=== PATIENT | female | born 1940 | race Caucasian/White ===

== ENCOUNTER 2017-10-10 09:01 | Emergency (ER) | payer MEDICARE, OTHER ==
[2017-10-10] MEDS ORDERED: DEXAMETHASONE SOD PHOS INJ 10 MG/1 ML VIAL IM ONE (09:56)
[2017-10-10] MEDS ORDERED: IPRATROPIUM/ALBUTEROL 0.5-2.5 MG/3 ML AMPUL NEB ONE (09:56)
--- NOTE | 2017-10-10 10:18 | ER Document Report ---
ED General - General Chief Complaint: Chest Congestion Stated Complaint: CHEST PAIN Time Seen by Provider: 10/10/17 09:51 Mode of Arrival: Wheelchair Information source: Patient, Relative Notes: 77-year-old female presents with family with concerns of a cough of a few day duration productive white. Patient has a history of COPD, she notes that she feels fine at this time but in the past that has led to pneumonia and she wanted to be seen prior to this occurring. Patient denies any significant shortness of breath denies any nausea vomiting or diarrhea Family does know patient is to have a pacemaker for some type of arrhythmia TRAVEL OUTSIDE OF THE [place] IN LAST 30 DAYS: No - HPI Onset: Yesterday Onset/Duration: Sudden Quality of pain: No pain Severity: Mild Pain Level: Denies Associated symptoms: Productive cough, Shortness of breath Exacerbated by: Denies Relieved by: Denies Similar symptoms previously: No Recently seen / treated by doctor: No - Related Data Allergies/Adverse Reactions: amoxicillin Allergy (Verified 10/10/17 09:06) clindamycin Allergy (Verified 10/10/17 09:06) doxycycline Allergy (Verified 10/10/17 09:06) Sulfa (Sulfonamide Antibiotics) Allergy (Verified 10/10/17 09:06) cortisone Adverse Reaction (Verified 10/10/17 09:11) latex Adverse Reaction (Verified 10/10/17 09:11) silicone Adverse Reaction (Verified 10/10/17 09:11) sitagliptin [From Januvia] Adverse Reaction (Verified 10/10/17 09:11) Past Medical History - Social History Smoking Status: Former Smoker Cigarette use (# per day): No Chew tobacco use (# tins/day): No Smoking Education Provided: No Frequency of alcohol use: Rare Drug Abuse: None Family History: Reviewed & Not Pertinent Patient has suicidal ideation: No Patient has homicidal ideation: No - Past Medical History Cardiac Medical History: Reports: Hx Hypertension Pulmonary Medical History: Reports: Hx COPD Renal/ Medical History: Denies: Hx Peritoneal Dialysis Musculoskeltal Medical History: Reports Hx Arthritis Past Surgical History: Reports: Hx Cardiac Surgery - 3 stents, Hx Cholecystectomy, Hx Orthopedic Surgery - L knee, bilateral wrists, Hx Tonsillectomy Review of Systems - Review of Systems Notes: REVIEW OF SYSTEMS: CONSTITUTIONAL : Denies fever, chills, or sweats. Denies recent illness. EENT: Denies eye, ear, throat, or mouth pain or symptoms. Denies nasal or sinus congestion or discharge. Denies throat, tongue, or mouth swelling or difficulty swallowing. CARDIOVASCULAR: Denies chest pain. Denies palpitations or racing or irregular heart beat. Denies ankle edema. RESPIRATORY: Admits to cough congestion GASTROINTESTINAL: Denies abdominal pain or distention. Denies nausea, vomiting , or diarrhea. Denies blood in vomitus, stools, or per rectum. Denies black, tarry stools. Denies constipation. GENITOURINARY: Denies difficulty urinating, painful urination, burning, frequency, blood in urine, or discharge. FEMALE GENITOURINARY: Denies vaginal bleeding, heavy or abnormal periods, irregular periods. Denies vaginal discharge or odor. MUSCULOSKELETAL: Denies back or neck pain or stiffness. Denies joint pain or swelling. SKIN: Denies rash, lesions or sores. HEMATOLOGIC : Denies easy bruising or bleeding. LYMPHATIC: Denies swollen, enlarged glands. NEUROLOGICAL: Denies confusion or altered mental status. Denies passing out or loss of consciousness. Denies dizziness or lightheadedness. Denies headache. Denies weakness or paralysis or loss of use of either side. Denies problems with gait or speech. Denies sensory loss, numbness, or tingling. Denies seizures. PSYCHIATRIC: Denies anxiety or stress. Denies depression, suicidal ideation, or homicidal ideation. ALL OTHER SYSTEMS REVIEWED AND NEGATIVE. PHYSICAL EXAMINATION: GENERAL: Well-appearing, well-nourished and in no acute distress. HEAD: Atraumatic, normocephalic. EYES: Pupils equal round and reactive to light, extraocular movements intact, conjunctiva are normal. ENT: Nares patent, oropharynx clear without exudates. Moist mucous membranes. NECK: Normal range of motion, supple without lymphadenopathy LUNGS: Breath sounds clear to auscultation bilaterally and equal. No wheezes rales or rhonchi. HEART: Regular rate and rhythm without murmurs ABDOMEN: Soft, nontender, nondistended abdomen. No guarding, no rebound. No masses appreciated. Female : deferred Musculoskeletal: Normal range of motion, no pitting or edema. No cyanosis. NEUROLOGICAL: Cranial nerves grossly intact. Normal speech, normal gait. Normal sensory, motor exams PSYCH: Normal mood, normal affect. SKIN: Warm, Dry, normal turgor, no rashes or lesions noted. Dictation was performed using [employer] voice recognition software Physical Exam - Vital signs Vitals: Temp Pulse Resp BP Pulse Ox 98.5 F 75 16 124/55 L 98 10/10/17 09:14 10/10/17 09:14 10/10/17 09:14 10/10/17 09:14 10/10/17 09:14 Course - Re-evaluation Re-evalutation: 10/10/17 11:15 Patient's examination is quite benign, she looks well is in no distress, chest x -ray noted no pneumonia, an EKG was performed and no arrhythmia was noted, there is an incomplete left bundle branch block. Given that patient feels fine after breathing treatment I believe steroids is appropriate. She has no chest pain no concerns for a cardiac event After performing a Medical Screening Examination, I estimate there is LOW risk for ACUTE CORONARY SYNDROME, PULMONARY EMBOLI, RESPIRATORY FAILURE, SEPSIS OR MENINGITIS, thus I consider the discharge disposition reasonable. I have reevaluated this patient multiple times and no significant life threatening changes are noted. The patient and I have discussed the diagnosis and risks, and we agree with discharging home with close follow-up. We also discussed returning to the Emergency Department immediately if new or worsening symptoms occur. We have discussed the symptoms which are most concerning (e.g., changing or worsening pain, trouble swallowing or breathing, neck stiffness, fever) that necessitate immediate return. - Vital Signs Vital signs: Temp Pulse Resp BP Pulse Ox 98.5 F 75 16 124/55 L 98 10/10/17 09:14 10/10/17 09:14 10/10/17 09:14 10/10/17 09:14 10/10/17 09:14 - Diagnostic Test Radiology reviewed: Image reviewed, Reports reviewed - EKG Interpretation by Me EKG shows normal: Sinus rhythm, [place], Intervals, QRS Complexes Alvord/QRS: LBBB Discharge - Discharge Clinical Impression: COPD exacerbation, Left bundle branch block Condition: Stable Disposition: HOME, SELF-CARE Instructions: Chronic Obstructive Lung Disease ([facility]) Additional Instructions: Follow up with your physician tomorrow for further care or return to the ED IMMEDIATELY if symptoms worsen or new concerns occur. If you cannot afford to follow up with your primary care physician a list of low cost clinics have been provided at the end of your discharge papers as well. Prescriptions: Prednisone [Deltasone 20 mg Tablet] 3 tab PO DAILY 5 Days tablet
--- NOTE | 2017-10-10 10:56 | RADIOLOGY REPORT (SQ) ---
EXAM DESCRIPTION: CHEST PA/LAT COMPLETED DATE/TIME: 10/10/2017 10:45 am REASON FOR STUDY: copd COMPARISON: None. EXAM PARAMETERS: NUMBER OF VIEWS: two views TECHNIQUE: Digital Frontal and Lateral radiographic views of the chest acquired. RADIATION DOSE: NA LIMITATIONS: none FINDINGS: LUNGS AND PLEURA: No opacities, masses or pneumothorax. No pleural effusion. MEDIASTINUM AND HILAR STRUCTURES: No masses or contour abnormalities. HEART AND VASCULAR STRUCTURES: Heart normal size. No evidence for failure. BONES: No acute findings. HARDWARE: None in the chest. OTHER: No other significant finding. IMPRESSION: NO SIGNIFICANT RADIOGRAPHIC FINDING IN THE CHEST. TECHNICAL DOCUMENTATION: JOB ID: [id number] [employer]- All Rights Reserved
[2017-10-10 11:17] VITALS: BP 120/50
--- NOTE | 2017-10-10 20:48 | EKG REPORT ---
SEVERITY:- ABNORMAL ECG - SINUS RHYTHM INCOMPLETE LEFT BUNDLE BRANCH BLOCK ANTERIOR Q WAVES, POSSIBLY DUE TO ILBBB : Confirmed by: Heladio Lombardo MD 10-Oct-2017 20:48:04
== END 2017-10-10 11:08 | disposition home or self-care (01) ==
LOC: ER 09:01
DX: I44.7 Left bundle-branch block, unspecified (principal); J44.1 Chronic obstructive pulmonary disease with (acute) exacerbation; R09.89 Other specified symptoms and signs involving the circulatory and respiratory systems; R07.9 Chest pain, unspecified; Z87.891 Personal history of nicotine dependence
CPT/HCPCS: 93005; 94640; 99284; 96372; 87070; 87880; 87804; 71020; 93010; J1100; A9270; J7620

== ENCOUNTER → 2018-01-19 | Outpatient (CLI) | payer MEDICARE, OTHER ==
--- NOTE | 2018-01-19 17:21 | Pulmonary Function Test ---
Pulmonary Function Test Date of Procedure:: 01/19/18 INDICATION:: Dyspnea Referring Provider: Dr. Montero Fitness Worker: Shannan Kauffman [employer] MACHINE PROGRAMMER - Report Spirometry: FVC 2.36 L 92% FEV1 1.78 L 96% FEV1/FVC % 75 predicted 81 FEF 25-75% 1.38 91% Lung Volume: Total lung capacity 3.74 L 79% Vital capacity 2.36 L 92% Inspiratory capacity 1.88 FRC N 2 1.86 L 72% ERV 0.28 RV 1.36 L 69% RV/TLC % 37 predicted 43 Diffusion Capactity: DLCO 13.7 70% DLCO/VA 3.55 104% Impression: No evidence to substantiate obstructive ventilatory defect. Borderline restrictive ventilatory defect. No hyperinflation or air trapping. Mild decrease in diffusion capacity.
== END ==
LOC: RT 12:22
PROVIDERS: ATTEND Internal Medicine Pulmonary Disease
DX: J44.9 Chronic obstructive pulmonary disease, unspecified (principal)
CPT/HCPCS: 94010; 94727; 94729

== ENCOUNTER 2018-05-08 17:19 | Emergency (ER) | payer MEDICARE, OTHER ==
--- NOTE | 2018-05-08 17:55 | ER Document Report ---
ED Medical Screen (RME) - General Chief Complaint: General Weakness Stated Complaint: WEAKNESS Time Seen by Provider: 05/08/18 17:46 TRAVEL OUTSIDE OF THE [place] IN LAST 30 DAYS: No - HPI Notes: 05/08/18 17:55 Nonspecific weakness greater today ongoing for greater than a week - Related Data Allergies/Adverse Reactions: amoxicillin Allergy (Verified 10/10/17 09:06) clindamycin Allergy (Verified 10/10/17 09:06) doxycycline Allergy (Verified 10/10/17 09:06) Sulfa (Sulfonamide Antibiotics) Allergy (Verified 10/10/17 09:06) cortisone Adverse Reaction (Verified 10/10/17 09:11) latex Adverse Reaction (Verified 10/10/17 09:11) silicone Adverse Reaction (Verified 10/10/17 09:11) sitagliptin [From Januvia] Adverse Reaction (Verified 10/10/17 09:11) Past Medical History - Social History Chew tobacco use (# tins/day): No Frequency of alcohol use: None - Past Medical History Cardiac Medical History: Reports: Hx Hypertension Pulmonary Medical History: Reports: Hx COPD Renal/ Medical History: Denies: Hx Peritoneal Dialysis Musculoskeltal Medical History: Reports Hx Arthritis Past Surgical History: Reports: Hx Cardiac Surgery - 3 stents, Hx Cholecystectomy, Hx Orthopedic Surgery - L knee, bilateral wrists, Hx Tonsillectomy Review of Systems - Review of Systems Constitutional: Weakness Physical Exam - Vital signs Vitals: Temp Pulse Resp BP Pulse Ox 98.7 F 77 20 131/52 H 96 05/08/18 17:28 05/08/18 17:28 05/08/18 17:28 05/08/18 17:28 05/08/18 17:28 - Respiratory Respiratory status: No respiratory distress Chest status: Nontender Breath sounds: Normal Chest palpation: Normal Course - Vital Signs Vital signs: Temp Pulse Resp BP Pulse Ox 98.7 F 77 20 131/52 H 96 05/08/18 17:28 05/08/18 17:28 05/08/18 17:28 05/08/18 17:28 05/08/18 17:28 Doctor's Discharge - Discharge Referrals: CLOVIS KAPLAN MD [Primary Care Provider] - Follow up as needed
[2018-05-08 18:36] LABS: ABSOLUTE BASOPHILS # (AUTO) 0.1 10^3/uL (0.0-0.2); ABSOLUTE EOSINOPHILS # (AUTO) 0.1 10^3/uL (0.0-0.6); ABSOLUTE LYMPHOCYTES (AUTO) 1.6 10^3/uL (0.5-4.7); ABSOLUTE MONOCYTES (AUTO) 0.4 10^3/uL (0.1-1.4); ABSOLUTE NEUT (AUTO) 3.4 10^3/uL (1.7-8.2); BASOPHILS % (AUTO) 1.3 % (0-2); EOSINOPHILS % (AUTO) 0.9 % (0-6); HEMATOCRIT 28.6 % (36.0-47.0); HEMOGLOBIN 9.6 g/dL (12.0-15.5); LYMPHOCYTES % (AUTO) 28.7 % (13-45); MEAN CORPUSCULAR HEMOGLOBIN 28.4 pg (27.0-33.4); MEAN CORPUSCULAR HGB CONC 33.7 g/dL (32.0-36.0); MEAN CORPUSCULAR VOLUME 84 fl (80-97); MONOCYTES % (AUTO) 7.5 % (3-13); PLATELET COUNT 238 10^3/uL (150-450); RED BLOOD COUNT 3.39 10^6/uL (3.72-5.28); RED CELL DISTRIBUTION WIDTH 13.6 % (11.5-14.0); SEGMENTED NEUTROPHILS % (AUTO) 61.6 % (42-78); TOTAL CELLS COUNTED % (AUTO) 100 %; WHITE BLOOD COUNT 5.5 10^3/uL (4.0-10.5)
[2018-05-08 18:49] LABS: APPEARANCE,URINE CLEAR; BILIRUBIN,URINE NEGATIVE (NEGATIVE); COLOR,URINE STRAW; GLUCOSE, URINE NEGATIVE (NEGATIVE); KETONES,URINE NEGATIVE (NEGATIVE); LEUKOCYTE ESTERASE,URINE NEGATIVE (NEGATIVE); NITRITE,URINE NEGATIVE (NEGATIVE); PROTEIN,URINE NEGATIVE (NEGATIVE); URINE SPECIFIC GRAVITY 1.009; UROBILINOGEN,URINE NEGATIVE mg/dL (<2.0)
[2018-05-08 18:59] LABS: ALANINE AMINOTRANSFERASE 23 U/L (9-52); ALBUMIN 4.1 g/dL (3.5-5.0); ALKALINE PHOSPHATASE 45 U/L (38-126); ANION GAP 12 (5-19); ASPARTATE AMINO TRANSFERASE 24 U/L (14-36); BILIRUBIN,DIRECT 0.2 mg/dL (0.0-0.4); BILIRUBIN,TOTAL 0.2 mg/dL (0.2-1.3); BLOOD UREA NITROGEN 22 mg/dL (7-20); CALCIUM 9.7 mg/dL (8.4-10.2); CARBON DIOXIDE 24 mmol/L (22-30); CHLORIDE 104 mmol/L (98-107); CREATINE KINASE 73 U/L (30-135); GLUCOSE 93 mg/dL (75-110); POTASSIUM 5.1 mmol/L (3.6-5.0); SODIUM 140.2 mmol/L (137-145); TOTAL PROTEIN 6.3 g/dL (6.3-8.2)
--- NOTE | 2018-05-08 19:14 | RADIOLOGY REPORT (SQ) ---
EXAM DESCRIPTION: ACUTE ABDOMEN SERIES COMPLETED DATE/TIME: 05/08/2018 6:38 pm REASON FOR STUDY: abd pain/weakness COMPARISON: Chest x-ray 10/10/2017. NUMBER OF VIEWS: Three views. TECHNIQUE: Frontal chest, supine abdomen and upright/decubitus abdomen radiographic images acquired. LIMITATIONS: None. FINDINGS: CHEST: No consolidation, sizeable pleural effusion or pneumothorax. FREE AIR: None. BOWEL GAS PATTERN: Nonobstructive pattern. No dilated loops or air fluid levels. CALCIFICATIONS: No suspicious calcifications. HARDWARE: Surgical clip in the right midabdomen. SOFT TISSUES: No gross mass or suggestion of organomegaly. BONES: Multilevel degenerative changes at the spine. IMPRESSION: Nonobstructive bowel gas pattern. TECHNICAL DOCUMENTATION: JOB ID: [id number] [employer]- All Rights Reserved Reading location - IP/workstation name: [email or web address]
--- NOTE | 2018-05-08 19:43 | ER Document Report ---
ED General - General Chief Complaint: General Weakness Stated Complaint: WEAKNESS Time Seen by Provider: 05/08/18 17:46 Notes: Patient is a 77-year-old female who comes emergency department for chief complaint of concerns about her blood sugar, shakiness, and feeling generally weak. She states she diet-controlled her diabetes or prediabetes in the past but she is wondering if it is getting out of control now. She has felt this way for the past month. She has been to her primary care provider multiple times, obtained a glucometer and has started checking her blood sugars. Most recent blood sugar was 99, she ranges from a low 56 (only time it was below 60) to a high of only low 100s. The vast majority of her blood sugars are in the 90s. She denies fever, chest pain, dizziness, headache. She states that she is also upset because she was supposed to have a pacemaker placed but she had just had a tooth removed over the past week and she was having trouble eating and keeping up her strength so she canceled it. Past medical history of COPD, hypothyroidism, hyperlipidemia, coronary artery disease, hypertension, anxiety. at bedside, she lives at home. TRAVEL OUTSIDE OF THE [place] IN LAST 30 DAYS: No - Related Data Allergies/Adverse Reactions: amoxicillin Allergy (Verified 10/10/17 09:06) clindamycin Allergy (Verified 10/10/17 09:06) doxycycline Allergy (Verified 10/10/17 09:06) Sulfa (Sulfonamide Antibiotics) Allergy (Verified 10/10/17 09:06) cortisone Adverse Reaction (Verified 10/10/17 09:11) latex Adverse Reaction (Verified 10/10/17 09:11) silicone Adverse Reaction (Verified 10/10/17 09:11) sitagliptin [From Januvia] Adverse Reaction (Verified 10/10/17 09:11) Past Medical History - General Information source: Patient, Relative - Social History Smoking Status: Former Smoker Chew tobacco use (# tins/day): No Frequency of alcohol use: None Lives with: Family Family History: Reviewed & Not Pertinent Patient has suicidal ideation: No Patient has homicidal ideation: No - Past Medical History Cardiac Medical History: Reports: Hx Hypertension Pulmonary Medical History: Reports: Hx COPD Renal/ Medical History: Denies: Hx Peritoneal Dialysis Musculoskeletal Medical History: Reports Hx Arthritis Past Surgical History: Reports: Hx Cardiac Surgery - 3 stents, Hx Cholecystectomy, Hx Orthopedic Surgery - L knee, bilateral wrists, Hx Tonsillectomy - Immunizations Hx Diphtheria, Pertussis, Tetanus Vaccination: Yes Review of Systems - Review of Systems Constitutional: See HPI EENT: No symptoms reported Cardiovascular: No symptoms reported Respiratory: No symptoms reported Gastrointestinal: No symptoms reported Genitourinary: No symptoms reported Female Genitourinary: No symptoms reported Musculoskeletal: No symptoms reported Skin: No symptoms reported Hematologic/Lymphatic: No symptoms reported Neurological/Psychological: No symptoms reported Physical Exam - Vital signs Vitals: Temp Pulse Resp BP Pulse Ox 98.7 F 77 20 131/52 H 96 05/08/18 17:28 05/08/18 17:28 05/08/18 17:28 05/08/18 17:28 05/08/18 17:28 - Notes Notes: GENERAL: Alert, interacts well. No acute distress. HEAD: Normocephalic, atraumatic. EYES: Pupils equal, round, and reactive to light. Extraocular movements intact. ENT: Oral mucosa moist, tongue midline. NECK: Full range of motion. Supple. Trachea midline. LUNGS: Clear to auscultation bilaterally, no wheezes, rales, or rhonchi. No respiratory distress. HEART: Regular rate and rhythm. No murmur ABDOMEN: Soft, non-tender. Non-distended. Bowel sounds present in all 4 quadrants. EXTREMITIES: Moves all 4 extremities spontaneously. No edema, normal radial and dorsalis pedis pulses bilaterally. No cyanosis. BACK: no cervical, thoracic, lumbar midline tenderness. No saddle anesthesia, normal distal neurovascular exam. NEUROLOGICAL: Alert and oriented x3. Normal speech. [cranial nerves II through XII grossly intact]. PSYCH: Normal affect, normal mood. SKIN: Warm, dry, normal turgor. No rashes or lesions noted. Course - Re-evaluation Re-evalutation: Patient is smiling, alert, talkative, gets up and walks around easily, has a normal neurological exam, soft abdomen, clear lungs, unremarkable vital signs. Nonspecific symptoms with very generalized complaints. CBC shows mild normocytic anemia, patient reports this is worse than prior which was in the tens. She is very concerned about this, attempted to perform digital rectal exam was stool sample but there was no stool to sample. Patient wants to test this, she wants to have it tested here, she was provided for prescription to have this performed. Chemistry generally unremarkable, urinalysis unremarkable, x-ray of the chest/abdomen with no acute findings. Troponin unremarkable. EKG with no acute changes. Very low suspicion of any acute etiology. I discussed workup with patient in detail, recommended follow- up for anemia evaluation, continue thyroid management, and generalized workup. Discussed return precautions in detail with patient and family. They state understanding and agreement. - Vital Signs Vital signs: Temp Pulse Resp BP Pulse Ox 98.8 F 77 18 115/49 L 98 05/08/18 22:34 05/08/18 17:28 05/08/18 22:00 05/08/18 21:00 05/08/18 22:00 - Laboratory Result Diagrams: 05/08/18 18:06 05/08/18 18:06 Laboratory results interpreted by me: 05/08/18 05/08/18 18:06 18:06 RBC 3.39 L Hgb 9.6 L Hct 28.6 L Potassium 5.1 H BUN 22 H Est GFR (Non-Af Amer) 58 L Discharge - Discharge Clinical Impression: Generalized weakness Condition: Stable Disposition: HOME, SELF-CARE Additional Instructions: No concerning abnormalities are seen on your department tonight. Your hemoglobin is lower compared to your previous reported values, however there is no stool sample for blood tonight. You have been provided with a prescription to have your stool tested for blood. I recommend following up with your hematology/oncology provider and having an anemia panel for further evaluation and treatment. You may also consider having thyroid panels by her primary care provider. Please return if you worsen including passing out, vomiting, severe abdominal pain, fever of 100.4 or greater, black or bloody stools, or any other concerning symptoms. Forms: Follow-Up Laboratory Testing Referrals: CLOVIS KAPLAN MD [Primary Care Provider] - Follow up as needed
[2018-05-08 20:04] LABS: INTERNATIONAL RATION (INR) 0.93; PROTHROMBIN TIME 12.9 SEC (11.4-15.4)
[2018-05-08 20:32] LABS: CREATINE KINASE MB 1.05 ng/mL (<4.55)
[2018-05-08 20:43] LABS: TROPONIN I < 0.012 ng/mL
[2018-05-08 22:11] VITALS: BP 115/49
--- NOTE | 2018-05-08 22:56 | EKG REPORT ---
SEVERITY:- ABNORMAL ECG - SINUS RHYTHM INCOMPLETE LEFT BUNDLE BRANCH BLOCK ANTERIOR Q WAVES, POSSIBLY DUE TO ILBBB : Confirmed by: Cirilo Hatfield 08-May-2018 22:55:45
== END 2018-05-08 22:34 | disposition home or self-care (01) ==
LOC: ER 17:19
DX: D64.9 Anemia, unspecified (principal); E03.9 Hypothyroidism, unspecified; R53.1 Weakness; J44.9 Chronic obstructive pulmonary disease, unspecified; I10 Essential (primary) hypertension; I25.10 Atherosclerotic heart disease of native coronary artery without angina pectoris; Z98.890 Other specified postprocedural states; Z95.5 Presence of coronary angioplasty implant and graft; Z88.0 Allergy status to penicillin; Z88.1 Allergy status to other antibiotic agents; Z88.2 Allergy status to sulfonamides; Z91.040 Latex allergy status; Z87.891 Personal history of nicotine dependence
CPT/HCPCS: 36415; 74022; 80053; 81001; 82550; 82553; 84484; 85025; 85610; 93005; 93010; 99285

== ENCOUNTER 2019-02-09 18:51 | Emergency (ER) | payer MEDICARE, OTHER ==
[2019-02-09] MEDS ORDERED: ACETAMINOPHEN 325 MG TABLET PO ONE (19:55)
--- NOTE | 2019-02-09 19:57 | ER Document Report ---
ED Medical Screen (RME) - General Chief Complaint: Head Injury Stated Complaint: HEAD INJURY Time Seen by Provider: 02/09/19 19:50 Primary Care Provider: JESSICA MONTES PA [Primary Care Provider] - Follow up as needed Notes: Patient is an 78-year-old female presents to the emergency department for generalized headache. Patient states the microwave door was open when she ran the top of her head directly into it. Patient's denying any loss of consciousness or vomiting. Patient states she does have a generalized headache and has more pain upon palpation. States she does not take any blood thinners. States she does take 81 mg aspirin daily. GENERAL: Alert, interacts well. No acute distress. HEAD: Normocephalic, atraumatic. Patient's hair is matted on the top of her head. No obvious boggy abnormalities felt. EYES: Pupils equal, round, and reactive to light. Extraocular movements intact. Patient is adamant that she gets CT imaging of her head. States she wants to make sure she is not "bleeding." I have greeted and performed a rapid initial assessment of this patient. A comprehensive ED assessment and evaluation of the patient, analysis of test results and completion of the medical decision making process will be conducted by additional ED providers. This medical record was dictated with voice recognizing software. There may be grammatical, syntax errors that are unintended. TRAVEL OUTSIDE OF THE [place] IN LAST 30 DAYS: No - Related Data Allergies/Adverse Reactions: amoxicillin Allergy (Verified 02/09/19 18:53) clindamycin Allergy (Verified 02/09/19 18:53) doxycycline Allergy (Verified 02/09/19 18:53) Sulfa (Sulfonamide Antibiotics) Allergy (Verified 02/09/19 18:53) cortisone Adverse Reaction (Verified 02/09/19 18:53) latex Adverse Reaction (Verified 02/09/19 18:53) silicone Adverse Reaction (Verified 02/09/19 18:53) sitagliptin [From Januvia] Adverse Reaction (Verified 02/09/19 18:53) Past Medical History - Social History Frequency of alcohol use: Rare Drug Abuse: None - Past Medical History Cardiac Medical History: Reports: Hx Hypertension Pulmonary Medical History: Reports: Hx COPD Renal/ Medical History: Denies: Hx Peritoneal Dialysis Musculoskeltal Medical History: Reports Hx Arthritis Past Surgical History: Reports: Hx Cardiac Surgery - 3 stents, pacemaker, Hx Cholecystectomy, Hx Orthopedic Surgery - L knee, bilateral wrists, Hx Tonsillectomy - Immunizations Hx Diphtheria, Pertussis, Tetanus Vaccination: Yes Physical Exam - Vital signs Vitals: Temp Pulse Resp BP Pulse Ox 97.4 F 67 14 115/52 L 98 02/09/19 18:53 02/09/19 18:53 02/09/19 18:53 02/09/19 18:53 02/09/19 18:53 Course - Vital Signs Vital signs: Temp Pulse Resp BP Pulse Ox 97.4 F 67 14 115/52 L 98 02/09/19 18:53 02/09/19 18:53 02/09/19 18:53 02/09/19 18:53 02/09/19 18:53 Doctor's Discharge - Discharge Referrals: JESSICA MONTES PA [Primary Care Provider] - Follow up as needed
--- NOTE | 2019-02-09 20:33 | RADIOLOGY REPORT (SQ) ---
EXAM DESCRIPTION: CT HEAD WITHOUT IV CONTRAST COMPLETED DATE/TME: 02/09/2019 19:54 CLINICAL HISTORY: 78 years, Female, trauma COMPARISON: None. TECHNIQUE: Noncontrast CT of the head was performed. Coronal and sagittal reformations were created. Images stored on PACS. All CT scanners at this facility use dose modulation, iterative reconstruction, and/or weight based dosing when appropriate to reduce radiation dose to as low as reasonably achievable (ALARA). [facility]: Dose Right [facility]: CareDose [facility]: Dose Right [facility]: Teradose 4D [facility]: [employer] LIMITATIONS: None. FINDINGS: Brain parenchyma is normal in attenuation. No acute intracranial hemorrhage, mass effect, or extra-axial fluid is seen. The ventricles and sulcal spaces are moderately enlarged. Globes and orbits show no acute abnormality. Paranasal sinuses and mastoid air cells are clear. However, there is mild deviation of the nasal septum towards the right. No depressed skull fractures. IMPRESSION: No acute intracranial normality. Moderate generalized atrophy. TECHNICAL DOCUMENTATION: Quality ID # [id number]: Final reports with documentation of one or more dose reduction techniques (e.g., Automated exposure control, adjustment of the mA and/or kV according to patient size, use of iterative reconstruction technique) copyright 2010 [employer]- All Rights Reserved
--- NOTE | 2019-02-09 22:36 | ER Document Report ---
ED General - General Chief Complaint: Head Injury Stated Complaint: HEAD INJURY Time Seen by Provider: 02/09/19 19:50 Primary Care Provider: JESSICA MONTES PA [Primary Care Provider] - Follow up as needed Mode of Arrival: Ambulatory Information source: Patient TRAVEL OUTSIDE OF THE [place] IN LAST 30 DAYS: No - HPI Notes: Patient is a 78-year-old female presents to the emergency department with report that 1 hour prior to arrival she accidentally struck her head against the microwave when she raised up. She reports instant headache following this, but there was no loss of consciousness and she did not fall down the ground. She states she struck herself in the forehead region. No neck pain or back pain or chest pain or abdominal pain or numbness or paresthesia or nausea or vomiting. No other injury. Patient is concerned she could have an intracranial hemorrhage, but she is only taking aspirin as an anticoagulant. - Related Data Allergies/Adverse Reactions: amoxicillin Allergy (Verified 02/09/19 18:53) clindamycin Allergy (Verified 02/09/19 18:53) doxycycline Allergy (Verified 02/09/19 18:53) Sulfa (Sulfonamide Antibiotics) Allergy (Verified 02/09/19 18:53) cortisone Adverse Reaction (Verified 02/09/19 18:53) latex Adverse Reaction (Verified 02/09/19 18:53) silicone Adverse Reaction (Verified 02/09/19 18:53) sitagliptin [From Januvia] Adverse Reaction (Verified 02/09/19 18:53) Past Medical History - General Information source: Patient - Social History Smoking Status: Former Smoker Frequency of alcohol use: Rare Drug Abuse: None Lives with: Family Family History: Reviewed & Not Pertinent Patient has suicidal ideation: No Patient has homicidal ideation: No - Past Medical History Cardiac Medical History: Reports: Hx Hypertension Pulmonary Medical History: Reports: Hx COPD Renal/ Medical History: Denies: Hx Peritoneal Dialysis Musculoskeletal Medical History: Reports Hx Arthritis Past Surgical History: Reports: Hx Cardiac Surgery - 3 stents, pacemaker, Hx Cholecystectomy, Hx Orthopedic Surgery - L knee, bilateral wrists, Hx Tonsillectomy - Immunizations Hx Diphtheria, Pertussis, Tetanus Vaccination: Yes Review of Systems - Review of Systems -: Yes All other systems reviewed and negative Physical Exam - Vital signs Vitals: Temp Pulse Resp BP Pulse Ox 97.4 F 67 14 115/52 L 98 02/09/19 18:53 02/09/19 18:53 02/09/19 18:53 02/09/19 18:53 02/09/19 18:53 - Notes Notes: PHYSICAL EXAMINATION: GENERAL: Well-appearing, well-nourished and in no acute distress. HEAD: Small forehead contusion noted. No crepitance or bony deformity. EYES: Pupils equal round and reactive to light, extraocular movements intact, conjunctiva are normal. ENT: Nares patent, oropharynx clear without exudates. Moist mucous membranes. NECK: Normal range of motion, supple without lymphadenopathy LUNGS: Breath sounds clear to auscultation bilaterally and equal. No wheezes rales or rhonchi. HEART: Regular rate and rhythm without murmurs ABDOMEN: Soft, nontender, nondistended abdomen. No guarding, no rebound. No ma sses appreciated. Female : deferred Musculoskeletal: Normal range of motion, no pitting or edema. No cyanosis. NEUROLOGICAL: Cranial nerves grossly intact. Normal speech, normal gait. Normal sensory, motor exams. No cerebellar ataxia. Normal reflexes. Normal gait, using a cane which is her baseline. PSYCH: Normal mood, normal affect. SKIN: Warm, Dry, normal turgor, no rashes or lesions noted. Course - Re-evaluation Re-evalutation: 02/09/19 22:33 Patient given Tylenol for headache with some improvement. CT scans negative for acute intracranial process. - Vital Signs Vital signs: Temp Pulse Resp BP Pulse Ox 97.4 F 67 14 115/52 L 98 02/09/19 18:53 02/09/19 18:53 02/09/19 18:53 02/09/19 18:53 02/09/19 18:53 Discharge - Discharge Clinical Impression: Head injury Qualifiers: Encounter type: initial encounter Qualified Code(s): S09.90XA - Unspecified injury of head, initial encounter Contusion Qualifiers: Encounter type: initial encounter Contusion area: head Contusion of head detail: scalp Qualified Code(s): S00.03XA - Contusion of scalp, initial encounter Condition: Stable Disposition: HOME, SELF-CARE Instructions: Head Injury Precautions ([facility]) Additional Instructions: Take tylenol as directed for pain. Return to the emergency department in case of severe headache or nausea. Referrals: JESSICA MONTES PA [Primary Care Provider] - Follow up as needed
[2019-02-09 22:53] VITALS: BP 133/70
== END 2019-02-09 22:54 | disposition home or self-care (01) ==
LOC: ER 18:51
DX: S00.03XA Contusion of scalp, initial encounter (principal); S00.83XA Contusion of other part of head, initial encounter; R51 Headache; W22.09XA Striking against other stationary object, initial encounter; I10 Essential (primary) hypertension; Z79.82 Long term (current) use of aspirin; J44.9 Chronic obstructive pulmonary disease, unspecified; Z88.0 Allergy status to penicillin; Z88.1 Allergy status to other antibiotic agents; Z88.2 Allergy status to sulfonamides; Z95.5 Presence of coronary angioplasty implant and graft; Z95.0 Presence of cardiac pacemaker
CPT/HCPCS: 99283; 70450; A9270

== ENCOUNTER 2019-05-20 12:16 | Emergency (ER) | payer MEDICARE, OTHER ==
[2019-05-20] MEDS ORDERED: ONDANSETRON 4 MG TAB.RAPDIS PO ONE (12:58)
--- NOTE | 2019-05-20 12:58 | ER Document Report ---
ED Medical Screen (RME) - General Chief Complaint: Abdominal Pain Stated Complaint: RIGHT SIDE PAIN Time Seen by Provider: 05/20/19 12:44 Mode of Arrival: Wheelchair Notes: This 79-year-old female presents to the emergency department with complaints of lower abdominal pain. Reports she has had lower mid abdominal pain for a while. She reports as for 5 days the pain has radiated to her right lower quad. This morning week she became very nauseated. Patient reports she believes she has an appendicitis. Patient has multiple chronic issues. She reports last bowel movement was yesterday was normal. She also reports she has a history of urinary frequency but she is seeing a urologist for this and is recently placed on medications which she stopped because it constipated her. She denies fever vomiting diarrhea. She is very tender right lower quad no rebound no radiation. I have greeted and performed a rapid initial assessment of this patient. A comprehensive ED assessment and evaluation of the patient, analysis of test results and completion of the medical decision making process will be conducted by additional ED providers. Dictation of this chart was performed using voice recognition software; therefore, there may be some unintended grammatical errors. TRAVEL OUTSIDE OF THE [place] IN LAST 30 DAYS: No - Related Data Allergies/Adverse Reactions: amoxicillin Allergy (Verified 05/20/19 12:17) clindamycin Allergy (Verified 05/20/19 12:17) doxycycline Allergy (Verified 05/20/19 12:17) Sulfa (Sulfonamide Antibiotics) Allergy (Verified 05/20/19 12:17) cortisone Adverse Reaction (Verified 05/20/19 12:17) latex Adverse Reaction (Verified 05/20/19 12:17) silicone Adverse Reaction (Verified 05/20/19 12:17) sitagliptin [From Januvia] Adverse Reaction (Verified 05/20/19 12:17) Past Medical History - Social History Chew tobacco use (# tins/day): No Frequency of alcohol use: None Drug Abuse: None - Past Medical History Cardiac Medical History: Reports: Hx Hypertension Pulmonary Medical History: Reports: Hx COPD Renal/ Medical History: Denies: Hx Peritoneal Dialysis Musculoskeltal Medical History: Reports Hx Arthritis Past Surgical History: Reports: Hx Cardiac Surgery - 3 stents, pacemaker, Hx Cholecystectomy, Hx Orthopedic Surgery - L knee, bilateral wrists, Hx Tonsillectomy - Immunizations Hx Diphtheria, Pertussis, Tetanus Vaccination: Yes Physical Exam - Vital signs Vitals: Temp Pulse Resp BP Pulse Ox 98.1 F 67 18 119/71 96 05/20/19 12:21 05/20/19 12:21 05/20/19 12:21 05/20/19 12:21 05/20/19 12:21 Course - Vital Signs Vital signs: Temp Pulse Resp BP Pulse Ox 98.1 F 67 18 119/71 96 05/20/19 12:21 05/20/19 12:21 05/20/19 12:21 05/20/19 12:21 05/20/19 12:21
--- NOTE | 2019-05-20 14:45 | RADIOLOGY REPORT (SQ) ---
EXAM DESCRIPTION: U/S ABDOMEN COMPLETE W/O DOP COMPLETED DATE/TIME: 05/20/2019 2:33 pm REASON FOR STUDY: rlq pain COMPARISON: None. TECHNIQUE: Dynamic and static grayscale images acquired of the abdomen and recorded on PACS. Additio nal selected color Doppler and spectral images recorded. Note: Study does not meet criteria for complete doppler/duplex scan LIMITATIONS: None. FINDINGS: PANCREAS: No masses. Visualized pancreatic duct normal caliber. LIVER: No masses. Echotexture normal. LIVER VASCULATURE: Normal directional flow of the main portal vein and hepatic veins. GALLBLADDER: No stones. Normal wall thickness. No pericholecystic fluid. ULTRASOUND-DETECTED NDIAYE'S SIGN: Negative. INTRAHEPATIC DUCTS AND COMMON DUCT: CBD and intrahepatic ducts normal caliber. No filling defects. INFERIOR VENA CAVA: Normal flow. AORTA: No aneurysm. RIGHT KIDNEY: Normal size. Normal echogenicity. No solid or suspicious masses. No hydronephros is. No calcifications. LEFT KIDNEY: Normal size. Normal echogenicity. No solid or suspicious masses. No hydronephrosi s. No calcifications. SPLEEN: Normal size. No solid masses. PERITONEAL AND PLEURAL SPACES: No ascites or effusions. OTHER: No abnormal sonographic findings in the right lower quadrant. The appendix is not visualized. IMPRESSION: NORMAL ABDOMINAL ULTRASOUND. TECHNICAL DOCUMENTATION: JOB ID: [id number] [employer]- All Rights Reserved Reading location - IP/workstation name: [email or web address]
[2019-05-20 14:49] LABS: APPEARANCE,URINE CLEAR; BILIRUBIN,URINE NEGATIVE (NEGATIVE); COLOR,URINE YELLOW; GLUCOSE, URINE NEGATIVE (NEGATIVE); KETONES,URINE NEGATIVE (NEGATIVE); LEUKOCYTE ESTERASE,URINE NEGATIVE (NEGATIVE); NITRITE,URINE NEGATIVE (NEGATIVE); PROTEIN,URINE NEGATIVE (NEGATIVE); URINE SPECIFIC GRAVITY 1.021; UROBILINOGEN,URINE NEGATIVE mg/dL (<2.0)
[2019-05-20 14:54] LABS: ABSOLUTE LYMPHOCYTES (AUTO) 1.6 10^3/uL (0.5-4.7); ABSOLUTE MONOCYTES (AUTO) 0.4 10^3/uL (0.1-1.4); ABSOLUTE NEUT (AUTO) 3.4 10^3/uL (1.7-8.2); BASOPHILS % (AUTO) 0.9 % (0-2); EOSINOPHILS % (AUTO) 0.4 % (0-6); HEMATOCRIT 37.4 % (36.0-47.0); HEMOGLOBIN 12.4 g/dL (12.0-15.5); LYMPHOCYTES % (AUTO) 29.1 % (13-45); MEAN CORPUSCULAR HEMOGLOBIN 28.7 pg (27.0-33.4); MEAN CORPUSCULAR HGB CONC 33.2 g/dL (32.0-36.0); MEAN CORPUSCULAR VOLUME 87 fl (80-97); MONOCYTES % (AUTO) 6.8 % (3-13); PLATELET COUNT 212 10^3/uL (150-450); RED BLOOD COUNT 4.32 10^6/uL (3.72-5.28); RED CELL DISTRIBUTION WIDTH 13.2 % (11.5-14.0); SEGMENTED NEUTROPHILS % (AUTO) 62.8 % (42-78); TOTAL CELLS COUNTED % (AUTO) 100 %; WHITE BLOOD COUNT 5.4 10^3/uL (4.0-10.5)
[2019-05-20 15:03] LABS: ALKALINE PHOSPHATASE 50 U/L (38-126); ANION GAP 8 (5-19); ASPARTATE AMINO TRANSFERASE 39 U/L (14-36); BILIRUBIN,DIRECT 0.3 mg/dL (0.0-0.4); BILIRUBIN,TOTAL 0.6 mg/dL (0.2-1.3); BLOOD UREA NITROGEN 34 mg/dL (7-20); CALCIUM 10.4 mg/dL (8.4-10.2); CARBON DIOXIDE 28 mmol/L (22-30); CHLORIDE 105 mmol/L (98-107); GLUCOSE 96 mg/dL (75-110); POTASSIUM 4.5 mmol/L (3.6-5.0); TOTAL PROTEIN 7.6 g/dL (6.3-8.2)
[2019-05-20] MEDS ORDERED: FENTANYL CITRATE INJ/PF 100 MCG/2 ML AMPUL IV ONE ×2 (15:54→20:12)
--- NOTE | 2019-05-20 16:09 | ER Document Report ---
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 She she reports over the last 3 weeks that she has been experiencing focal tenderness around her umbilicus and right lower quadrant. She describes it as a constant aching pain with intermittent sharp pain. Patient has had associated nausea without vomiting. She reports her last bowel movement was yesterday. She denies any black or bloody stool. Patient does report a history of constipation. Patient reports a colonoscopy and endoscopy which was performed in July 2018. She states that that was normal. TRAVEL OUTSIDE OF THE [place] IN LAST 30 DAYS: No - HPI Onset: Other Onset/Duration: Gradual, Intermittent Quality of pain: Achy, Sharp Severity: Mild Pain Level: 1 Associated symptoms: Nausea. denies: Body/muscle aches, Chest pain, Productive cough, Fever, Vomiting, Shortness of breath Exacerbated by: Denies Relieved by: Denies Similar symptoms previously: Yes Recently seen / treated by doctor: Yes - Related Data Allergies/Adverse Reactions: amoxicillin Allergy (Verified 05/20/19 12:17) clindamycin Allergy (Verified 05/20/19 12:17) doxycycline Allergy (Verified 05/20/19 12:17) Sulfa (Sulfonamide Antibiotics) Allergy (Verified 05/20/19 12:17) cortisone Adverse Reaction (Verified 05/20/19 12:17) latex Adverse Reaction (Verified 05/20/19 12:17) silicone Adverse Reaction (Verified 05/20/19 12:17) sitagliptin [From Januvia] Adverse Reaction (Verified 05/20/19 12:17) Past Medical History - General Information source: Patient - Social History Smoking Status: Never Smoker Chew tobacco use (# tins/day): No Frequency of alcohol use: None Drug Abuse: None Lives with: Family Family History: Reviewed & Not Pertinent Patient has suicidal ideation: No Patient has homicidal ideation: No - Past Medical History Cardiac Medical History: Reports: Hx Hypertension Pulmonary Medical History: Reports: Hx COPD Renal/ Medical History: Denies: Hx Peritoneal Dialysis Musculoskeletal Medical History: Reports Hx Arthritis Past Surgical History: Reports: Hx Cardiac Surgery - 3 stents, pacemaker, Hx Cholecystectomy, Hx Orthopedic Surgery - L knee, bilateral wrists, Hx Tonsillectomy - Immunizations Hx Diphtheria, Pertussis, Tetanus Vaccination: Yes Review of Systems - Review of Systems Notes: REVIEW OF SYSTEMS: CONSTITUTIONAL : Denies fever, chills, or sweats. Denies recent illness. Denies weight loss, recent hospitalizations. EENT: Denies visual changes, eye pain. Denies sore throat, oral lesions, difficulty swallowing. CARDIOVASCULAR: Denies chest pain. Denies palpitations. Denies lower extremity edema. RESPIRATORY: Denies cough. Denies shortness of breath, wheezing. GASTROINTESTINAL: Denies abdominal distention. Denies vomiting, or diarrhea. Denies blood in vomitus, stools, or per rectum. Denies black, tarry stools. Denies constipation. GENITOURINARY: Denies difficulty urinating, painful urination, frequency, blood in urine, or vaginal discharge. MUSCULOSKELETAL: Denies back or neck pain or stiffness. Denies joint pain or swelling. SKIN: Denies rash, lesions or sores. HEMATOLOGIC : Denies easy bruising or bleeding. LYMPHATIC: Denies swollen glands. NEUROLOGICAL: Denies confusion or altered mental status. Denies loss of c onsciousness. Denies dizziness or lightheadedness. Denies headache. Denies weakness or paralysis. Denies problems difficulty with ambulation, slurred speech. Denies sensory loss, numbness, or tingling. Denies seizures. PSYCHIATRIC: Denies anxiety or stress. Denies depression, suicidal ideation, or homicidal ideation. Denies visual or auditory hallucinations. Physical Exam - Vital signs Vitals: Temp Pulse Resp BP Pulse Ox 98.1 F 67 18 119/71 96 05/20/19 12:21 05/20/19 12:21 05/20/19 12:21 05/20/19 12:21 05/20/19 12:21 - Notes Notes: PHYSICAL EXAMINATION: GENERAL: Well-appearing, well-nourished and in no acute distress. HEAD: Atraumatic, normocephalic. EYES: Pupils equal round and reactive to light, extraocular movements intact, conjunctiva are normal. ENT: Nares patent, oropharynx clear without exudates. Moist mucous membranes. NECK: Normal range of motion, supple without lymphadenopathy LUNGS: Breath sounds clear to auscultation bilaterally and equal. No wheezes rales or rhonchi. HEART: Regular rate and rhythm without murmurs ABDOMEN: Soft, tenderness with palpation to the left lower quadrant, right lower quadrant and periumbilical region. Nondistended abdomen. No guarding, no rebound. No masses appreciated. Bowel sounds present. No rigidity. No pulsatile mass Female : deferred Musculoskeletal: Normal range of motion, no pitting or edema. No cyanosis. NEUROLOGICAL: Cranial nerves grossly intact. Normal speech, normal gait. Normal sensory, motor exams PSYCH: Normal mood, normal affect. SKIN: Warm, Dry, normal turgor, no rashes or lesions noted. Course - Re-evaluation Re-evalutation: 05/20/19 22:01 Laboratory 05/20/19 05/20/19 05/20/19 14:36 14:36 14:36 WBC 5.4 RBC 4.32 Hgb 12.4 Hct 37.4 MCV 87 MCH 28.7 MCHC 33.2 RDW 13.2 Plt Count 212 Seg Neutrophils % 62.8 Lymphocytes % 29.1 Monocytes % 6.8 Eosinophils % 0.4 Basophils % 0.9 Absolute Neutrophils 3.4 Absolute Lymphocytes 1.6 Absolute Monocytes 0.4 Absolute Eosinophils 0.0 Absolute Basophils 0.0 Sodium 140.6 Potassium 4.5 Chloride 105 Carbon Dioxide 28 Anion Gap 8 BUN 34 H Creatinine 0.83 Est GFR ( Amer) > 60 Est GFR (Non-Af Amer) > 60 Glucose 96 Calcium 10.4 H Total Bilirubin 0.6 Direct Bilirubin 0.3 Neonat Total Bilirubin Not Reportable Neonat Direct Bilirubin Not Reportable Neonat Indirect Bili Not Reportable AST 39 H ALT 19 Alkaline Phosphatase 50 Total Protein 7.6 Albumin 5.0 Urine Color YELLOW Urine Appearance CLEAR Urine pH 5.0 Ur Specific [place] 1.021 Urine Protein NEGATIVE Urine Glucose (UA) NEGATIVE Urine Ketones NEGATIVE Urine Blood SMALL H Urine Nitrite NEGATIVE Urine Bilirubin NEGATIVE Urine Urobilinogen NEGATIVE Ur Leukocyte Esterase NEGATIVE Urine WBC (Auto) 0 Urine RBC (Auto) 1 Squamous Epi Cells Auto <1 Urine Mucus (Auto) RARE Urine Ascorbic Acid NEGATIVE Abdomen/Pelvis CT 05/20/19 00:00 IMPRESSION: NO SIGNIFICANT OR ACUTE FINDING IN THE ABDOMEN OR PELVIS ON CT SCAN WITH IV CONTRAST. Abdomen Ultrasound 05/20/19 12:54 IMPRESSION: NORMAL ABDOMINAL ULTRASOUND. Temp Pulse Resp BP Pulse Ox 97.6 F 61 18 128/63 H 96 05/20/19 20:34 05/20/19 20:34 05/20/19 20:34 05/20/19 20:34 05/20/19 20:34 My abdominal pain MDM 79-year-old female presents with abdominal pain that has been ongoing for several years with worsening of pain over the last week. Pain is located in the right lower quadrant and periumbilical area. Vital signs re viewed and within normal limits. Patient is afebrile, normotensive. She does not appear toxic or dehydrated. Previous medical records and nursing notes reviewed. CBC is without leukocytosis or anemia. CMP is without electrolyte abnormality. Urinalysis not consistent with infection. Ultrasound of the abdomen shows no evidence of abdominal aortic aneurysm, hydronephrosis. Patient also underwent a CT of her abdomen which also showed no acute findings. Patient did receive 25 mcg of fentanyl as well as Zofran and does report some improvement of her pain. After performing a Medical Screening Examination, I estimate there is LOW risk for ACUTE APPENDICITIS, BOWEL OBSTRUCTION, ACUTE CHOLECYSTITIS, PERFORATED DIVERTICULITIS, INCARCERATED HERNIA, PANCREATITIS, PELVIC INFLAMMATORY DISEASE, PERFORATED ULCER, ECTOPIC , or TUBO-OVARIAN ABSCESS, thus I consider the discharge disposition reasonable. Also, there is no evidence or peritonitis, sepsis, or toxicity. I have reevaluated this patient multiple times and no significant life threatening changes are noted. The patient and I have discussed the diagnosis and risks, and we agree with discharging home with close follow-up with the understanding that symptoms and presentations can change. We also discussed returning to the Emergency Department immediately if new or worsening symptoms occur. We have discussed the symptoms which are most concerning (e.g., bloody stool, fever, changing or worsening pain, vomiting) that necessitate immediate return. Patient was evaluated and treated as appropriate for the patient's presenting symptoms and complaint, with consideration of any critical or life threatening conditions that may be associated with their obtained history and exam as noted above. All results were discussed with patient. Patient provided the opportunity to ask questions, and express concerns. Patient was educated on treatments based on their presumed diagnosis as noted above. At this time we will discharge the patient with return precautions and follow-up recommendations. Verbal discharge instructions given a the bedside. Medication warnings reviewed. Patient is in agreement with this plan and has verbalized understanding of return precautions. After careful consideration I feel that that patient can be safely discharged from the emergency department, they were advised to followup with a primary care physician in 2-3 days. Dictation on this chart was performed using voice recognition software and may result in unintended grammatical, spelling, syntax or errors. - Vital Signs Vital signs: Temp Pulse Resp BP Pulse Ox 97.6 F 61 18 128/63 H 96 05/20/19 20:34 05/20/19 20:34 05/20/19 20:34 05/20/19 20:34 05/20/19 20:34 - Laboratory Result Diagrams: 05/20/19 14:36 05/20/19 14:36 Laboratory results interpreted by me: 05/20/19 05/20/19 14:36 14:36 BUN 34 H Calcium 10.4 H AST 39 H Urine Blood SMALL H - Diagnostic Test Radiology reviewed: Image reviewed, Reports reviewed Discharge - Discharge Clinical Impression: Chronic abdominal pain, Right lower quadrant abdominal pain, Nausea Condition: Good Disposition: HOME, SELF-CARE Instructions: Abdominal Pain ([facility]), Nausea or Vomiting, Nonspecific ([facility]), Observation for Appendicitis ([facility]) Additional Instructions: Follow up with your [id number] hours for further care or return to the ED IMMEDIATELY if symptoms worsen or you have any concerns. If you cannot afford to follow up with your primary care physician a list of low cost clinics have been provided at the end of your discharge papers as well. Most prescribed medications have multiple side effects. The safest thing to do is when filling your prescription speak to your pharmacist regarding possible interactions with your normal home medications and over the counter medications such as Ibuprofen, Tylenol, Benadryl. If you experience any symptoms that cause you discomfort or concern you should discontinue the medication immediately and return to the emergency room or call your primary care physician. Prescriptions: Dicyclomine HCl [Bentyl 20 mg Tablet] 20 mg PO BID PRN #10 tablet PRN Reason: Abdominal Cramping Ondansetron [Zofran Odt 4 mg Tablet] 1 tab PO Q4H PRN #15 tab.rapdis PRN Reason: For Nausea/Vomiting Referrals: CLOVIS KAPLAN MD [Primary Care Provider] - Follow up in 3-5 days
--- NOTE | 2019-05-20 19:13 | RADIOLOGY REPORT (SQ) ---
EXAM DESCRIPTION: CT ABD/PELVIS WITH IV ORAL COMPLETED DATE/TIME: 05/20/2019 6:59 pm REASON FOR STUDY: rla pain COMPARISON: None. TECHNIQUE: CT scan of the abdomen and pelvis performed using helical scanning technique with dynamic intravenous contrast injection. Oral contrast. Images reviewed with lung, soft tissue, and bone win dows. Reconstructed coronal and sagittal MPR images reviewed. Delayed images for evaluation of the ur inary system also acquired. All images stored on PACS. All CT scanners at this facility use dose modulation, iterative reconstruction, and/or weight based d osing when appropriate to reduce radiation dose to as low as reasonably achievable (ALARA). [facility]: Dose Right [facility]: CareDose [facility]: Dose Right [facility]: Teradose 4D [facility]: IFMR [employer] CONTRAST TYPE AND DOSE: contrast/concentration: Isovue 350.00 mg/ml; Total Contrast Delivered: 83.0 ml; Total Saline Delivered: 69.0 ml RENAL FUNCTION: BUN 34 creatinine 0.83 RADIATION DOSE: CT Rad equipment meets quality standard of care and radiation dose reduction techniq ues were employed. CTDIvol: 9.1 - 12.8 mGy. DLP: 1083 mGy-cm.. LIMITATIONS: None. FINDINGS: LOWER CHEST: No significant findings. No nodules or infiltrates. LIVER: Normal size. No masses. No dilated ducts. SPLEEN: Normal size. No focal lesions. PANCREAS: No masses. No significant calcifications. No adjacent inflammation or peripancreatic fluid collections. Pancreatic duct not dilated. GALLBLADDER: Surgically absent. ADRENAL GLANDS: No significant masses or asymmetry. RIGHT KIDNEY AND URETER: No solid masses. No significant calcifications. No hydronephrosis or hyd roureter. LEFT KIDNEY AND URETER: No solid masses. No significant calcifications. No hydronephrosis or hydr oureter. AORTA AND VESSELS: No aneurysm. No dissection. Renal arteries, SMA, celiac without stenosis. RETROPERITONEUM: No retroperitoneal adenopathy, hemorrhage or masses. BOWEL AND PERITONEAL CAVITY: No masses or inflammatory changes. No free fluid or peritoneal masses. APPENDIX: Normal. PELVIS: No mass. No free fluid. Normal bladder. ABDOMINAL WALL: No masses. No hernias. BONES: No significant or acute findings. OTHER: No other significant finding. IMPRESSION: NO SIGNIFICANT OR ACUTE FINDING IN THE ABDOMEN OR PELVIS ON CT SCAN WITH IV CONTRAST. TECHNICAL DOCUMENTATION: JOB ID: [id number] Quality ID # [id number]: Final reports with documentation of one or more dose reduction techniques (e.g., Au tomated exposure control, adjustment of the mA and/or kV according to patient size, use of iterative reconstruction technique) 2010 [employer]- All Rights Reserved Reading location - IP/workstation name: [email or web address]
[2019-05-20] MEDS ORDERED: ONDANSETRON HCL INJ/PF 4 MG/2 ML SDV IV ONE (20:12)
[2019-05-20 20:35] VITALS: BP 128/63
== END 2019-05-20 20:35 | disposition home or self-care (01) ==
LOC: ER 12:16
DX: R10.9 Unspecified abdominal pain (principal); R10.31 Right lower quadrant pain; G89.29 Other chronic pain; R11.0 Nausea; I10 Essential (primary) hypertension; J44.9 Chronic obstructive pulmonary disease, unspecified
CPT/HCPCS: 96376; 99284; 96374; 96375; 36415; 85025; 80053; 81001; 76700; 74177; A9270; J3010; J2405; S0119

== ENCOUNTER → 2019-12-04 | Outpatient (CLI) | payer MEDICARE, OTHER ==
--- NOTE | 2019-12-04 16:25 | RADIOLOGY REPORT (SQ) ---
EXAM DESCRIPTION: BARIUM SWALLOW ESOPHAGUS COMPLETED DATE/TIME: 12/04/2019 10:21 am REASON FOR STUDY: DYSPHAGIA (R13.10) R13.10 DYSPHAGIA, UNSPECIFIED COMPARISON: None. TECHNIQUE: Under fluoroscopic guidance, patient ingested effervescent granules followed by thick and thin barium. Fluoroscopic spot images and routine radiographic images acquired and stored on PACS. 12 MM BARIUM TABLET GIVEN: Patient unable to swallow barium tablet. LIMITATIONS: None. FLUOROSCOPY TIME: FLUORO TIME: 2.9 minutes 11 images saved to PACS. FINDINGS: NEUROMUSCULAR COORDINATION OF SWALLOW: Normal. No aspiration. ESOPHAGEAL MOTILITY: Normal peristalsis. No esophageal spasm. ESOPHAGEAL MUCOSA: Normal mucosa without masses or ulceration. Mild cricopharyngeus hypertrophy note d. Small diverticulum in the distal esophagus. GASTRO-ESOPHAGEAL JUNCTION: Mild narrowing at the GE junction, but no hang up of barium noted. Patie nt unable to swallow a 12 mm tablet to assess narrowing further. No hiatal hernia or reflux. NON-GI TRACT STRUCTURES: No significant finding. OTHER: No other significant finding. IMPRESSION: SMALL DIVERTICULUM IN DISTAL ESOPHAGUS. MILD NARROWING OF THE GE JUNCTION. OTHERWISE U NREMARKABLE STUDY. RECOMMENDATION: NONE COMMENT: None Quality ID [id number]: Final reports for procedures using fluoroscopy that document radiation exposure cory karly, or exposure time and number of fluorographic images (if radiation exposure indices are not avail able) TECHNICAL DOCUMENTATION: JOB ID: [id number] 2010 [employer]- All Rights Reserved Reading location - IP/workstation name: [email or web address] [id number]
== END ==
LOC: RAD 09:18
PROVIDERS: ATTEND Internal Medicine Gastroenterology
DX: K22.2 Esophageal obstruction (principal); R13.10 Dysphagia, unspecified
CPT/HCPCS: 74220

== ENCOUNTER 2020-08-25 08:50 | Emergency (ER) | payer MEDICARE, OTHER ==
[2020-08-25 10:26] LABS: ABSOLUTE EOSINOPHILS # (AUTO) 0.1 10^3/uL (0.0-0.6); ABSOLUTE LYMPHOCYTES (AUTO) 1.1 10^3/uL (0.5-4.7); ABSOLUTE MONOCYTES (AUTO) 0.4 10^3/uL (0.1-1.4); ABSOLUTE NEUT (AUTO) 4.1 10^3/uL (1.7-8.2); BASOPHILS % (AUTO) 0.8 % (0-2); EOSINOPHILS % (AUTO) 1.1 % (0-6); HEMATOCRIT 29.7 % (36.0-47.0); HEMOGLOBIN 9.9 g/dL (12.0-15.5); LYMPHOCYTES % (AUTO) 19.3 % (13-45); MEAN CORPUSCULAR HEMOGLOBIN 27.8 pg (27.0-33.4); MEAN CORPUSCULAR HGB CONC 33.4 g/dL (32.0-36.0); MEAN CORPUSCULAR VOLUME 83 fl (80-97); MONOCYTES % (AUTO) 7.5 % (3-13); PLATELET COUNT 187 10^3/uL (150-450); RED BLOOD COUNT 3.58 10^6/uL (3.72-5.28); RED CELL DISTRIBUTION WIDTH 14.5 % (11.5-14.0); SEGMENTED NEUTROPHILS % (AUTO) 71.3 % (42-78); TOTAL CELLS COUNTED % (AUTO) 100 %; WHITE BLOOD COUNT 5.7 10^3/uL (4.0-10.5)
--- NOTE | 2020-08-25 10:29 | RADIOLOGY REPORT (SQ) ---
EXAM DESCRIPTION: CHEST SINGLE VIEW IMAGES COMPLETED DATE/TIME: 08/25/2020 10:13 am REASON FOR STUDY: chest pain COMPARISON: 10/10/2017 EXAM PARAMETERS: NUMBER OF VIEWS: One view. TECHNIQUE: Single frontal radiographic view of the chest acquired. RADIATION DOSE: NA LIMITATIONS: None. FINDINGS: LUNGS AND PLEURA: No opacities, masses or pneumothorax. No pleural effusion. MEDIASTINUM AND HILAR STRUCTURES: No masses. Contour normal. HEART AND VASCULAR STRUCTURES: Heart normal in size. Normal vasculature. BONES: No acute findings. HARDWARE: Interval dual lead pacemaker. OTHER: No other significant finding. IMPRESSION: NO ACUTE RADIOGRAPHIC FINDING IN THE CHEST. TECHNICAL DOCUMENTATION: JOB ID: [id number] 2010 [employer]- All Rights Reserved Reading location - IP/workstation name: [email or web address]
[2020-08-25 10:31] LABS: PARTIAL THROMBOPLASTIN TIME 26.1 SEC (23.5-35.8); PROTHROMBIN TIME 13.4 SEC (11.4-15.4)
[2020-08-25 10:39] LABS: ALBUMIN 3.7 g/dL (3.5-5.0); ALKALINE PHOSPHATASE 58 U/L (38-126); ANION GAP 9 (5-19); ASPARTATE AMINO TRANSFERASE 53 U/L (14-36); BILIRUBIN,DIRECT 0.1 mg/dL (0.0-0.4); BILIRUBIN,TOTAL 0.2 mg/dL (0.2-1.3); BLOOD UREA NITROGEN 28 mg/dL (7-20); CALCIUM 9.9 mg/dL (8.4-10.2); CARBON DIOXIDE 24 mmol/L (22-30); CHLORIDE 107 mmol/L (98-107); CREATINE KINASE 80 U/L (30-135); GLUCOSE 108 mg/dL (75-110); POTASSIUM 3.9 mmol/L (3.6-5.0)
[2020-08-25 10:50] LABS: CREATINE KINASE MB 1.44 ng/mL (<4.55); TROPONIN I < 0.012 ng/mL
[2020-08-25 13:15] VITALS: BP 127/51
--- NOTE | 2020-08-25 13:32 | ER Document Report ---
Entered by ANNMARIE MUNSON SCRIBE 08/25/20 0952 Acting as scribe for:JONO COSTA MD ED General - General Chief Complaint: Chest Pain Stated Complaint: CHEST PAIN Primary Care Provider: CLOVIS KAPLAN MD [Primary Care Provider] - Follow up as needed Information source: Patient Notes: This 80 year old female patient presents to the emergency department today with complaints of chest pain. Patient reports chest discomfort this morning and pain in the center of her chest after sitting up. Patient states she took x1 81mg aspirin and had x2 NTG 5 min apart. Patient states EMS administered x3 more 81mg aspirin and her chest pain is now around a 1/5. Patient reports sweating during this episode, mild upper abdominal pain, and denies N/V. Patient states she saw her java analyst x1 month ago and everything looked good. Patient reports history of HTN, COPD, acid reflux, pacemaker, x3 stents, and denies GA. TRAVEL OUTSIDE OF THE [place] IN LAST 30 DAYS: No - Related Data Allergies/Adverse Reactions: amoxicillin Allergy (Verified 05/20/19 12:17) clindamycin Allergy (Verified 05/20/19 12:17) doxycycline Allergy (Verified 05/20/19 12:17) Sulfa (Sulfonamide Antibiotics) Allergy (Verified 05/20/19 12:17) cortisone Adverse Reaction (Verified 05/20/19 12:17) latex Adverse Reaction (Verified 05/20/19 12:17) silicone Adverse Reaction (Verified 05/20/19 12:17) sitagliptin [From Januvia] Adverse Reaction (Verified 05/20/19 12:17) Past Medical History - General Information source: Patient - Social History Smoking Status: Former Smoker Cigarette use (# per day): No Lives with: Family Family History: Reviewed & Not Pertinent - Past Medical History Cardiac Medical History: Reports: Hx Hypertension Denies: Hx Heart Attack Pulmonary Medical History: Reports: Hx COPD Renal/ Medical History: Denies: Hx Peritoneal Dialysis Musculoskeletal Medical History: Reports Hx Arthritis Past Surgical History: Reports: Hx Cardiac Surgery - 3 stents, pacemaker, Hx Cholecystectomy, Hx Coronary Stent - x3, Hx Orthopedic Surgery - L knee, bilateral wrists, Hx Pacemaker, Hx Tonsillectomy - Immunizations Hx Diphtheria, Pertussis, Tetanus Vaccination: Yes Review of Systems - Review of Systems Constitutional: See HPI EENT: No symptoms reported Cardiovascular: See HPI, Chest pain Respiratory: No symptoms reported Gastrointestinal: See HPI, Abdominal pain - mild. denies: Nausea, Vomiting Genitourinary: No symptoms reported Female Genitourinary: No symptoms reported Musculoskeletal: No symptoms reported Skin: No symptoms reported Hematologic/Lymphatic: No symptoms reported Neurological/Psychological: No symptoms reported -: Yes All other systems reviewed and negative Physical Exam - Vital signs Vitals: Pulse Ox 100 08/25/20 09:00 - General General appearance: Appears well, Alert - HEENT Head: Normocephalic, Atraumatic Eyes: Normal Pupils: PERRL - Respiratory Respiratory status: No respiratory distress Chest status: Nontender Breath sounds: Normal Chest palpation: Normal - Cardiovascular Rhythm: Regular Heart sounds: Normal auscultation, S1 appreciated, S2 appreciated Murmur: No - Abdominal Inspection: Normal Distension: No distension Bowel sounds: Normal Tenderness: Nontender - Extremities General upper extremity: Normal inspection, Normal ROM General lower extremity: Normal inspection, Normal ROM. No: Edema - Neurological Neuro grossly intact: Yes Cognition: Normal Orientation: AAOx4 Tiesha Coma Scale Eye Opening: Spontaneous Clayton Coma Scale Verbal: Oriented Tiesha Coma Scale Motor: Obeys Commands Clayton Coma Scale Total: 15 Speech: Normal Sensory: Normal - Psychological Associated symptoms: Normal affect, Normal mood - Skin Skin Temperature: Warm Skin Moisture: Dry Skin Color: Normal Course - Re-evaluation Re-evalutation: 08/25/20 11:18 Patient continues to report that her chest discomfort is less than 1. Patient showing no signs of distress at this time vital signs are stable initial troponin 0 0.012-second troponin is pending around 12:00 today. 08/25/20 13:28 Discussed with patient at length differential diagnosis of the type of pain that she had today including angina. Also acid reflux esophageal spasm. Patient was offered admission to the hospital for further evaluation or if she needed me to discuss with her primary care physician or java analyst or profile stitching machine operator. Patient has an appointment she says with her profile stitching machine operator on Wednesday and she will discuss her symptoms that she had on this day. I advised patient to f ollow-up as soon as possible as possible with her java analyst inasmuch as further work-up perhaps should be done to prove that the event of the day was not related to her heart. Currently patient is pain-free and prefers to go home. Patient is advised to return to the emergency department if she has further problems. - Vital Signs Vital signs: Temp Pulse Resp BP Pulse Ox 98.0 F 15 127/51 H 98 08/25/20 09:30 08/25/20 13:01 08/25/20 13:01 08/25/20 13:01 08/25/20 13:29 Vital signs stable - Laboratory Result Diagrams: 08/25/20 10:06 08/25/20 10:06 Laboratory results interpreted by me: 08/25/20 08/25/20 10:06 10:06 RBC 3.58 L Hgb 9.9 L Hct 29.7 L RDW 14.5 H BUN 28 H AST 53 H Total Protein 6.0 L Laboratories essentially within normal range except for hemoglobin of 10 hematocrit 30. Mild elevation in AST and total protein 6.0. - Diagnostic Test Radiology reviewed: Image reviewed, Reports reviewed Radiology results interpreted by me: 08/25/20 11:20 Chest X-Ray 08/25/20 09:55 IMPRESSION: NO ACUTE RADIOGRAPHIC FINDING IN THE CHEST. Chest x-ray shows no acute process normal findings of the chest. - EKG Interpretation by Me Additional EKG results interpreted by me: 08/25/20 11:21 Atrial paced rhythm rate of 64 [place] interval within normal range QRS within normal range QT interval within normal range left axis deviation incomplete left bundle branch block probable inferior infarct old anterior Q waves due to intraventricular left bundle branch block. Discharge - Discharge Clinical Impression: Chest pain of unclear etiology Condition: Stable Disposition: HOME, SELF-CARE Instructions: Reflux Disease (GERD) ([facility]), Chest Pain of Unclear Cause ([facility]), Aspirin (Cardiac) ([facility]), Prilosec (Acid Pump Inhibitor) ([facility]), Angina Episode ([facility]) Referrals: CLOVIS KAPLAN MD [Primary Care Provider] - Follow up as needed I personally performed the services described in the documentation, reviewed and edited the documentation which was dictated to the scribe in my presence, and it accurately records my words and actions.
--- NOTE | 2020-08-25 18:03 | EKG REPORT ---
SEVERITY:- ABNORMAL ECG - ATRIAL-PACED RHYTHM INCOMPLETE LEFT BUNDLE BRANCH BLOCK PROBABLE INFERIOR INFARCT, OLD ANTERIOR Q WAVES, POSSIBLY DUE TO ILBBB : Confirmed by: Hayes Hopper MD 25-Aug-2020 18:02:21
== END 2020-08-25 13:55 | disposition home or self-care (01) ==
LOC: ER 08:50
DX: R07.9 Chest pain, unspecified (principal); R61 Generalized hyperhidrosis; R10.10 Upper abdominal pain, unspecified; R74.01 Elevation of levels of liver transaminase levels; I44.7 Left bundle-branch block, unspecified; I10 Essential (primary) hypertension; J44.9 Chronic obstructive pulmonary disease, unspecified; Z87.891 Personal history of nicotine dependence; Z87.19 Personal history of other diseases of the digestive system; Z95.0 Presence of cardiac pacemaker; Z95.5 Presence of coronary angioplasty implant and graft; Z88.0 Allergy status to penicillin; Z88.1 Allergy status to other antibiotic agents; Z88.2 Allergy status to sulfonamides
CPT/HCPCS: 36415; 71045; 80053; 82550; 82553; 84484; 85025; 85610; 85730; 93005; 93010; 99285

== ENCOUNTER 2020-08-26 22:40 | Inpatient (IN) | payer MEDICARE, OTHER ==
--- NOTE | 2020-08-26 22:59 | EKG REPORT ---
SEVERITY:- ABNORMAL ECG - ATRIAL-PACED COMPLEXES ABNRM R PROG, CONSIDER ASMI OR LEAD PLACEMENT ABNORMAL T, CONSIDER ISCHEMIA, LATERAL LEADS : Confirmed by: Cirilo Hatfield 26-Aug-2020 22:59:14
[2020-08-27] MEDS ORDERED: MAG HYDROX/AL HYDROX/SIMETH SUSP 30 ML UDCUP PO ONE (00:33)
[2020-08-27] MEDS ORDERED: METOCLOPRAMIDE HCL ORAL SOLN 10 MG/10 ML UDCUP PO ONE (00:33)
[2020-08-27] MEDS ORDERED: LIDOCAINE 2% VISCOUS SOLN 15 ML UDCUP PO ONE (00:33)
--- NOTE | 2020-08-27 00:36 | ER Document Report ---
ED Medical Screen (RME) - General Chief Complaint: Chest Wall Injury Stated Complaint: CHEST PAIN,EPIGASTRIC PAIN Time Seen by Provider: 08/27/20 00:32 Primary Care Provider: CLOVIS KAPLAN MD [Primary Care Provider] - Follow up as needed Mode of Arrival: Ambulatory Information source: Patient Notes: 80-year-old female was here 2 days ago with chest pain. She was worked up thoroughly and discharged home with an unknown cause for her chest pain. She was doing okay today. Her encouraged her to eat. She ate a grilled cheese sandwich. Had sudden pain right up through the middle of her chest. She has no gallbladder. Pain has somewhat subsided but is still present in the upper part of her abdomen in the mid chest. General exam: No acute distress Cardiac regular rate and rhythm Pulmonary no respiratory distress Abdomen mild epigastric tenderness. Nondistended abdomen. Bowel sounds present all 4 quadrants I have greeted and performed a rapid initial assessment of this patient. A comprehensive ED assessment and evaluation of the patient, analysis of test results and completion of the medical decision making process will be conducted by additional ED providers. TRAVEL OUTSIDE OF THE [place] IN LAST 30 DAYS: No - Related Data Allergies/Adverse Reactions: amoxicillin Allergy (Verified 05/20/19 12:17) clindamycin Allergy (Verified 05/20/19 12:17) doxycycline Allergy (Verified 05/20/19 12:17) Sulfa (Sulfonamide Antibiotics) Allergy (Verified 05/20/19 12:17) cortisone Adverse Reaction (Verified 05/20/19 12:17) latex Adverse Reaction (Verified 05/20/19 12:17) silicone Adverse Reaction (Verified 05/20/19 12:17) sitagliptin [From Januvia] Adverse Reaction (Verified 05/20/19 12:17) Past Medical History - Past Medical History Cardiac Medical History: Reports: Hx Hypertension Denies: Hx Heart Attack Pulmonary Medical History: Reports: Hx COPD Renal/ Medical History: Denies: Hx Peritoneal Dialysis Musculoskeltal Medical History: Reports Hx Arthritis Past Surgical History: Reports: Hx Cardiac Surgery - 3 stents, pacemaker, Hx Cholecystectomy, Hx Coronary Stent - x3, Hx Orthopedic Surgery - L knee, bilateral wrists, Hx Pacemaker, Hx Tonsillectomy - Immunizations Hx Diphtheria, Pertussis, Tetanus Vaccination: Yes Physical Exam - Vital signs Vitals: Temp Pulse Resp BP Pulse Ox 98.1 F 79 16 123/78 100 08/26/20 22:59 08/26/20 22:59 08/26/20 22:59 08/26/20 22:59 08/26/20 22:59 Course - Vital Signs Vital signs: Temp Pulse Resp BP Pulse Ox 98.1 F 79 16 123/78 100 08/26/20 22:59 08/26/20 22:59 08/26/20 22:59 08/26/20 22:59 08/26/20 22:59 Doctor's Discharge - Discharge Referrals: CLOVIS KAPLAN MD [Primary Care Provider] - Follow up as needed
[2020-08-27 02:27] LABS: ABSOLUTE MONOCYTES (AUTO) 0.6 10^3/uL (0.1-1.4); ABSOLUTE NEUT (AUTO) 6.3 10^3/uL (1.7-8.2); BASOPHILS % (AUTO) 0.4 % (0-2); EOSINOPHILS % (AUTO) 0.2 % (0-6); HEMATOCRIT 31.7 % (36.0-47.0); HEMOGLOBIN 10.7 g/dL (12.0-15.5); LYMPHOCYTES % (AUTO) 12.6 % (13-45); MEAN CORPUSCULAR HEMOGLOBIN 27.9 pg (27.0-33.4); MEAN CORPUSCULAR HGB CONC 33.7 g/dL (32.0-36.0); MEAN CORPUSCULAR VOLUME 83 fl (80-97); PLATELET COUNT 214 10^3/uL (150-450); RED BLOOD COUNT 3.83 10^6/uL (3.72-5.28); RED CELL DISTRIBUTION WIDTH 14.6 % (11.5-14.0); SEGMENTED NEUTROPHILS % (AUTO) 79.8 % (42-78); TOTAL CELLS COUNTED % (AUTO) 100 %; WHITE BLOOD COUNT 7.9 10^3/uL (4.0-10.5)
[2020-08-27 03:14] LABS: ALBUMIN 4.2 g/dL (3.5-5.0); ALKALINE PHOSPHATASE 139 U/L (38-126); ANION GAP 10 (5-19); ASPARTATE AMINO TRANSFERASE 485 U/L (14-36); BILIRUBIN,DIRECT 0.1 mg/dL (0.0-0.4); BILIRUBIN,TOTAL 0.3 mg/dL (0.2-1.3); BLOOD UREA NITROGEN 29 mg/dL (7-20); CALCIUM 10.1 mg/dL (8.4-10.2); CARBON DIOXIDE 27 mmol/L (22-30); CHLORIDE 104 mmol/L (98-107); CREATINE KINASE 62 U/L (30-135); GLUCOSE 131 mg/dL (75-110); POTASSIUM 4.1 mmol/L (3.6-5.0); TOTAL PROTEIN 6.5 g/dL (6.3-8.2)
[2020-08-27 03:17] LABS: TROPONIN I < 0.012 ng/mL
[2020-08-27] MEDS ORDERED: MORPHINE SULFATE 10 MG/ML INJ IV ONE ×3 (09:39→16:09)
[2020-08-27] MEDS ORDERED: ONDANSETRON HCL INJ/PF 4 MG/2 ML SDV IV ONE (09:40)
--- NOTE | 2020-08-27 11:48 | RADIOLOGY REPORT (SQ) ---
EXAM DESCRIPTION: CT ABD/PELVIS WITH IV ONLY; CTA CHEST IMAGES COMPLETED DATE/TIME: 08/27/2020 10:10 am REASON FOR STUDY: epigastric pain; chest pain. Chest pain, right upper and right lower quadrant estevan n. Previous hysterectomy and cholecystectomy. COMPARISON: 05/20/2019 CONTRAST TYPE AND DOSE: contrast/concentration: Isovue 350.00 mmol/ml; Total Contrast Delivered: 85. 0 ml; Total Saline Delivered: 44.8 ml RENAL FUNCTION: GFR > 60. TECHNIQUE: CT angiography scan of the chest performed using helical scanning technique with dynamic intravenous contrast injection. Images reviewed with lung, soft tissue and bone windows. Reconstruct ed oblique, coronal and sagittal MPR images reviewed. All images stored on PACS. CT scan of the abdomen and pelvis performed with intravenous and oral contrast using helical scanning technique with dynamic intravenous contrast injection. Images reviewed with lung, soft tissue and b one windows. Reconstructed coronal and sagittal MPR images reviewed. Delayed images for evaluation of the urinary system also acquired and evaluated. All images stored on PACS. All CT scanners at this facility use dose modulation, iterative reconstruction, and/or weight based d osing when appropriate to reduce radiation dose to as low as reasonably achievable (ALARA). [facility]: Dose Right [facility]: CareDose [facility]: Dose Right [facility]: Teradose 4D [facility]: [employer] RADIATION DOSE: CT Rad equipment meets quality standard of care and radiation dose reduction techniq ues were employed. CTDIvol: 6.6 - 15.6 mGy. DLP: 2044 mGy-cm. . LIMITATIONS: None. FINDINGS: CHEST: AXILLAE: No adenopathy. CHEST WALL: No masses. No subcutaneous air. LUNGS: Trachea has normal caliber and appearance. No bronchial wall thickening or bronchiectasis. B ackground mild pulmonary emphysema with pleural and parenchymal scarring at the lung apices. No foca l consolidation. No suspicious pulmonary nodules. PLEURA: No effusions or pneumothorax. No calcifications. THYROID: No masses or significant asymmetry. HILAR AND MEDIASTINAL STRUCTURES: No identified masses or abnormal nodes. AORTA AND GREAT VESSELS: No aneurysm. No dissection. PULMONARY ARTERIES: There is no pulmonary embolism. HEART: Heart has normal size. No pericardial effusion. HARDWARE AND LIFELINES: Left infraclavicular pacemaker with intact lead wires. BONES: No suspicious bone lesions. OTHER: No other significant finding. ABDOMEN AND PELVIS: LIVER: The liver has normal size and contour. No focal hepatic mass. Hepatic and portal veins are p atent. Mild prominence of the intrahepatic and extrahepatic biliary ducts secondary to previous chol ecystectomy. No ductal dilation or abnormal biliary enhancement. SPLEEN: Normal size. No focal lesions. PANCREAS: No masses. No significant calcifications. No adjacent inflammation or peripancreatic flui d collections. Pancreatic duct not dilated. GALLBLADDER: Surgically absent. ADRENAL GLANDS: No significant masses or asymmetry. RIGHT KIDNEY AND URETER: No solid masses. No significant calcifications. No hydronephrosis or hyd roureter. LEFT KIDNEY AND URETER: No solid masses. No significant calcifications. No hydronephrosis or hydr oureter. AORTA AND VESSELS: No aneurysm. No dissection. Renal arteries, SMA, celiac without stenosis. RETROPERITONEUM: No retroperitoneal adenopathy, hemorrhage or masses. LARGE AND SMALL BOWEL: There is no bowel obstruction. No bowel wall thickening. No mass or inflamma tory change. APPENDIX: Normal. ABDOMINAL WALL: No hernia or masses. PERITONEAL CAVITY: No free air. No free fluid. No peritoneal implants or masses. PELVIS: Post hysterectomy. No adnexal mass. Urinary bladder has normal contour. No bladder wall th ickening, intraluminal bladder mass or debris. Multiple calcified pelvic phleboliths. No pelvic melba nopathy or free fluid. BONES: No significant or acute findings. OTHER: No other significant finding. IMPRESSION: 1. No pulmonary embolism. No acute pulmonary disease. 2. No acute abnormality in the abdomen or pelvis to explain the patient's symptoms. TECHNICAL DOCUMENTATION: JOB ID: [id number] Quality ID # [id number]: Final reports with documentation of one or more dose reduction techniques (e.g., Au tomated exposure control, adjustment of the mA and/or kV according to patient size, use of iterative reconstruction technique) 2010 [employer]- All Rights Reserved Reading location - IP/workstation name: [email or web address]
--- NOTE | 2020-08-27 13:43 | RADIOLOGY REPORT (SQ) ---
EXAM DESCRIPTION: U/S ABDOMEN LIMITED W/O DOP IMAGES COMPLETED DATE/TIME: 08/27/2020 1:21 pm REASON FOR STUDY: ruq pain COMPARISON: 05/20/2019 TECHNIQUE: Dynamic and static grayscale images acquired of the abdomen and recorded on PACS. Additio rebeka selected color Doppler and spectral images recorded. LIMITATIONS: None. FINDINGS: PANCREAS: No masses. Visualized pancreatic duct normal caliber. LIVER: No masses. Echotexture normal. LIVER VASCULATURE: Normal directional flow of the main portal vein and hepatic veins. GALLBLADDER: Surgically absent. ULTRASOUND-DETECTED NDIAYE'S SIGN: Not applicable. INTRAHEPATIC DUCTS AND COMMON DUCT: The common bile duct is dilated to 9 mm. There is mild intrahepa tic ductal prominence. AORTA: No aneurysm. Atherosclerosis. RIGHT KIDNEY: Normal size 9 cm. Normal echogenicity. No solid or suspicious masses. No hydronephrosi s. No calcifications. PERITONEAL AND RIGHT PLEURAL SPACE: No ascites or effusions. OTHER: No other significant findings. IMPRESSION: Common bile duct dilated. There is prominence of the intrahepatic ducts. These finding s may be secondary to the prior cholecystectomy. Correlate clinically for biliary obstruction. TECHNICAL DOCUMENTATION: JOB ID: [id number] 2010 [employer]- All Rights Reserved Reading location - IP/workstation name: [email or web address]
[2020-08-27] MEDS ORDERED: SUCCINYLCHOLINE CHLORIDE INJ 200 MG/10 ML VIAL ONE (16:01)
--- NOTE | 2020-08-27 16:13 | ER Document Report ---
ED General - General Chief Complaint: Chest Pain Stated Complaint: CHEST PAIN,EPIGASTRIC PAIN Time Seen by Provider: 08/27/20 00:32 Mode of Arrival: Ambulatory Information source: Patient TRAVEL OUTSIDE OF THE [place] IN LAST 30 DAYS: No - HPI Notes: Patient presents epigastric pain. States that this started several days ago. States she was seen here in the emergency department approximately 2 days ago and the etiology of the pain was not ascertained. She states she is feeling better and went home. She states today the pain returned and has been severe. She states it radiates to her back. It is constant. Nothing makes it better or worse. She states she has had a decreased appetite and has been unable to eat today. She has had nausea but no vomiting or diarrhea. No fever sweats or chills. No significant chest pain. - Related Data Allergies/Adverse Reactions: amoxicillin Allergy (Verified 08/27/20 03:06) clindamycin Allergy (Verified 08/27/20 03:06) doxycycline Allergy (Verified 08/27/20 03:06) Sulfa (Sulfonamide Antibiotics) Allergy (Verified 08/27/20 03:06) cortisone Adverse Reaction (Verified 08/27/20 03:06) latex Adverse Reaction (Verified 08/27/20 03:06) silicone Adverse Reaction (Verified 08/27/20 03:06) sitagliptin [From Januvia] Adverse Reaction (Verified 08/27/20 03:06) Past Medical History - General Information source: Patient - Social History Smoking Status: Former Smoker Frequency of alcohol use: None Drug Abuse: None Family History: Reviewed & Not Pertinent - Past Medical History Cardiac Medical History: Reports: Hx Hypertension Denies: Hx Heart Attack Pulmonary Medical History: Reports: Hx COPD Renal/ Medical History: Denies: Hx Peritoneal Dialysis Musculoskeletal Medical History: Reports Hx Arthritis Past Surgical History: Reports: Hx Cardiac Surgery - 3 stents, pacemaker, Hx Cholecystectomy, Hx Coronary Stent - x3, Hx Orthopedic Surgery - L knee, bilateral wrists, Hx Pacemaker, Hx Tonsillectomy - Immunizations Hx Diphtheria, Pertussis, Tetanus Vaccination: Yes Review of Systems - Review of Systems Constitutional: denies: Chills, Fever Cardiovascular: denies: Chest pain, Palpitations Respiratory: denies: Cough, Short of breath -: Yes All other systems reviewed and negative Physical Exam - Vital signs Vitals: Temp Pulse Resp BP Pulse Ox 98.1 F 79 16 123/78 100 08/26/20 22:59 08/26/20 22:59 08/26/20 22:59 08/26/20 22:59 08/26/20 22:59 Interpretation: Normal - General General appearance: Appears well, Alert - HEENT Head: Normocephalic, Atraumatic Eyes: Normal Pupils: PERRL - Respiratory Respiratory status: No respiratory distress Chest status: Nontender Breath sounds: Normal Chest palpation: Normal - Cardiovascular Rhythm: Regular Heart sounds: Normal auscultation Murmur: No - Abdominal Inspection: Normal Distension: No distension Bowel sounds: Normal Tenderness: Tender - Moderate epigastric tenderness to palpation Organomegaly: No organomegaly - Back Back: Normal, Nontender - Extremities General upper extremity: Normal inspection, Nontender, Normal color, Normal ROM, Normal temperature General lower extremity: Normal inspection, Nontender, Normal color, Normal ROM, Normal temperature, Normal weight bearing. No: Ben's sign - Neurological Neuro grossly intact: Yes Cognition: Normal Orientation: AAOx4 Tucker Coma Scale Eye Opening: Spontaneous Tiesha Coma Scale Verbal: Oriented Tiesha Coma Scale Motor: Obeys Commands Tucker Coma Scale Total: 15 Speech: Normal Motor strength normal: LUE, RUE, LLE, RLE Sensory: Normal - Psychological Associated symptoms: Normal affect, Normal mood - Skin Skin Temperature: Warm Skin Moisture: Dry Skin Color: Normal Course - Re-evaluation Re-evalutation: 08/27/20 16:11 Patient presents with epigastric pain. Laboratories are significant for increased LFTs as compared to 2 days ago. Ultrasound shows a dilated common bile duct. CT scans are unremarkable. Patient was not able to obtain an MRI due to having a pacemaker. Presentation seems most significant for possible common bile duct stone. I have spoken with the software development leader, Dr. Kim. He has agreed to see the patient in consultation. - Vital Signs Vital signs: Temp Pulse Resp BP Pulse Ox 98.0 F 62 19 132/52 H 99 08/27/20 13:38 08/27/20 07:13 08/27/20 15:00 08/27/20 15:01 08/27/20 15:00 - Laboratory Result Diagrams: 08/27/20 02:12 08/27/20 02:12 Laboratory results interpreted by me: 08/27/20 08/27/20 02:12 02:12 Hgb 10.7 L Hct 31.7 L RDW 14.6 H Lymph % (Auto) 12.6 L Seg Neutrophils % 79.8 H BUN 29 H Glucose 131 H AST 485 H ALT 246 H Alkaline Phosphatase 139 H - Diagnostic Test Radiology reviewed: Image reviewed, Reports reviewed - EKG Interpretation by Me EKG shows normal: Sinus rhythm Rate: Normal - 61 Rhythm: NSR A[place]on/QRS: IVCD Discharge - Discharge Clinical Impression: Epigastric pain, Hepatitis Condition: Fair Disposition: ADMITTED INPATIENT Admitting Provider: Bertin (Hospitalist) Unit Admitted: Medical Floor
[2020-08-27] MEDS ORDERED: ACETAMINOPHEN 325 MG TABLET PO PRN (17:03)
[2020-08-27] MEDS ORDERED: MAGNESIUM HYDROXIDE SUSP 30 ML UDCUP PO PRN (17:03)
[2020-08-27] MEDS ORDERED: MAG HYDROX/AL HYDROX/SIMETH SUSP 30 ML UDCUP PO PRN (17:03)
[2020-08-27] MEDS ORDERED: DEXTROSE 50%-WATER 25 GM/50 ML DISP.SYRIN IV PRN ×2 (17:03)
[2020-08-27] MEDS ORDERED: GLUCAGON,HUMAN RECOMB 1 MG INJ SUBCUT PRN (17:03)
[2020-08-27] MEDS ORDERED: ONDANSETRON HCL INJ/PF 4 MG/2 ML SDV IV PRN ×2 (17:03→19:11)
[2020-08-27] MEDS ORDERED: ALBUTEROL SULFATE 0.083% NEB 2.5 MG/3 ML AMPUL NEB PRN (17:03)
[2020-08-27] MEDS ORDERED: DEXTROSE 40% GEL 15 GM TUBE PO PRN ×2 (17:03)
[2020-08-27] MEDS ORDERED: NITROGLYCERIN 0.4 MG/TAB 25 TAB/BOTTLE SL PRN (17:12)
[2020-08-27] MEDS ORDERED: GLUCAGON,HUMAN RECOMB 1 MG INJ ONE (17:46)
[2020-08-27] MEDS ORDERED: EPINEPHRINE INJ 1 MG/10 ML DISP.SYRIN ONE (17:46)
--- NOTE | 2020-08-27 17:46 | PDOC H&P ---
History of Present Illness Admission Date/PCP: 08/27/20 16:03 CLOVIS KAPLAN MD Patient complains of: Abdominal pain History of Present Illness: ELSY SIDHU is a 80 year old female who has been in the emergency department several times over the last 2 weeks. She states that she has had GI problems over the years. She reports history of irritable bowel. She had a colonoscopy and gastroscopy approximately 2 years ago. She states that after the endoscop ies her stomach felt worse. She states that she has had increasing pain since Wednesday. She denies nausea and vomiting. She states she has not had much to eat. She had no relief from the pain and presented to the emergency department. Her transaminases were found to be elevated and her intrahepatic ducts were prominent. The emergency department contacted Dr. Kim who will be performing an ERCP today. She will be admitted to the hospital service. We will provide IV fluids as she is quite dry and she is n.p.o. She can have medications with sips of water until after the procedure. We will resume her previous medications. Past Medical History Cardiac Medical History: Reports: Coronary Artery Disease, Hypertension Denies: Myocardial Infarction Pulmonary Medical History: Reports: Chronic Obstructive Pulmonary Disease (COPD) Neurological Medical History: Denies: Ischemic CVA, Seizures Endocrine Medical History: Reports: Hypothyroidism Denies: Diabetes Mellitus Type 2 Renal/ Medical History: Denies: Chronic Kidney Disease, Nephrolithiasis Malignancy Medical History: Reports: Other - Myelodysplastic syndrome GI Medical History: Reports: Gastroesophageal Reflux Disease Musculoskeltal Medical History: Reports: Arthritis Psychiatric Medical History: Reports: General Anxiety Disorder Hematology: Reports: Anemia Past Surgical History Past Surgical History: Reports: Cardiac Catheterization, Cholecystectomy, Coronary Stent - x3, Orthopedic Surgery - L knee, bilateral wrists, Pacemaker, Tonsillectomy Social History Information Source: Patient Lives with: Spouse/Significant other Smoking Status: Former Smoker Electronic Cigarette use?: No Frequency of Alcohol Use: None Hx Recreational Drug Use: No Hx Prescription Drug Abuse: No - Advance Directive Resuscitation Status: Full Code Surrogate healthcare decision maker:: Her daughter is the power of tax associate attorney and primary decision maker and her granddaughter is secondary. Family History Family History: CAD Parental Family History Reviewed: Yes Children Family History Reviewed: Yes Sibling(s) Family History Reviewed.: Yes Medication/Allergy Home Medications: Albuterol Sulfate [Albuterol Sulfate Hfa] 2 puff IH Q6HP PRN 08/27/20 Atorvastatin Calcium [Lipitor 20 mg Tablet] 20 mg PO QHS 08/27/20 Clonazepam [Klonopin] 0.5 mg PO BID 08/27/20 Fluticasone/Vilanterol [Breo 200-25 Mcg Ellipta 14 Dose/Dpi] 1 inh IH DAILY 08/27/20 Folic Acid [Folvite 1 mg Tablet] 1 mg PO DAILY 08/27/20 Levothyroxine Sodium [Synthroid 0.075 mg Tablet] 0.075 mg PO Q6AM 08/27/20 Melatonin [Melatonin 3 mg Tablet] 3 mg PO QHS 08/27/20 Metoprolol Succinate [Toprol Xl 25 mg Tab.sr] 12.5 mg PO QHS 08/27/20 Nitroglycerin [Nitrostat 0.4 mg (1/150 Gr) Tabs 25/Bottle] 1 tab SL Q5MP PRN 08/27/20 Trazodone HCl [Desyrel 50 mg Tablet] 25 mg PO QHS MDD 50 mg 08/27/20 Allergies/Adverse Reactions: amoxicillin Allergy (Verified 08/27/20 03:06) clindamycin Allergy (Verified 08/27/20 03:06) doxycycline Allergy (Verified 08/27/20 03:06) Sulfa (Sulfonamide Antibiotics) Allergy (Verified 08/27/20 03:06) cortisone Adverse Reaction (Verified 08/27/20 03:06) latex Adverse Reaction (Verified 08/27/20 03:06) silicone Adverse Reaction (Verified 08/27/20 03:06) sitagliptin [From Januvia] Adverse Reaction (Verified 08/27/20 03:06) Review of Systems All systems: reviewed and no additional remarkable complaints except as stated Nose, Mouth, and Throat: PRESENT: other - Dry mouth Gastrointestinal: PRESENT: abdominal pain Genitourinary: PRESENT: other - Incontinence Psychiatric: PRESENT: anxiety Physical Exam Vital Signs: Temp Pulse Resp BP Pulse Ox 98 F 62 21 H 146/88 H 92 08/27/20 17:01 08/27/20 07:13 08/27/20 17:01 08/27/20 17:00 08/27/20 17:01 Intake & Output 08/26/20 08/27/20 08/28/20 06:59 06:59 06:59 Weight 74.1 kg General appearance: PRESENT: cooperative, mild distress, well-developed Head exam: PRESENT: atraumatic, normocephalic Eye exam: PRESENT: conjunctiva pink, EOMI, PERRLA. ABSENT: scleral icterus Ear exam: PRESENT: normal external ear exam. ABSENT: bleeding, drainage Mouth exam: PRESENT: dry mucosa, tongue midline Neck exam: ABSENT: carotid bruit, JVD, lymphadenopathy, tenderness, tracheostomy Respiratory exam: PRESENT: clear to auscultation graciela, symmetrical, unlabored. ABSENT: accessory muscle use, rales, rhonchi, tachypnea, wheezes Cardiovascular exam: PRESENT: RRR, +S1, +S2, systolic murmur - 2/6. ABSENT: bradycardia, diastolic murmur, irregular rhythm, tachycardia Pulses: PRESENT: normal radial pulses GI/Abdominal exam: PRESENT: diminished bowel sounds, soft, tenderness - Epigastrium and right upper quadrant. ABSENT: distended, guarding Rectal exam: PRESENT: deferred Gentrourinary exam: ABSENT: indwelling catheter Extremities exam: ABSENT: calf tenderness, pedal edema Musculoskeletal exam: PRESENT: normal inspection. ABSENT: deformity, dislocation Neurological exam: PRESENT: alert, awake, oriented to person, oriented to place, oriented to time, oriented to situation, CN II-XII grossly intact. ABSENT: altered Psychiatric exam: PRESENT: flat affect. ABSENT: agitated, anxious Focused psych exam: ABSENT: delusional, paranoid, restlessness Skin exam: PRESENT: dry, normal color, warm. ABSENT: rash Results Laboratory Results: 08/27/20 02:12 08/27/20 02:12 08/27/20 08/27/20 08/27/20 02:12 02:12 02:12 WBC 7.9 RBC 3.83 Hgb 10.7 L Hct 31.7 L MCV 83 MCH 27.9 MCHC 33.7 RDW 14.6 H Plt Count 214 Seg Neutrophils % 79.8 H Sodium 140.6 Potassium 4.1 Chloride 104 Carbon Dioxide 27 Anion Gap 10 BUN 29 H Creatinine 0.79 Est GFR ( Amer) > 60 Glucose 131 H Calcium 10.1 Total Bilirubin 0.3 AST 485 H Alkaline Phosphatase 139 H Total Protein 6.5 Albumin 4.2 Lipase 188.2 08/27/20 08/27/2008/27/20 02:12 02:12 05:36 Creatine Kinase 62 CK-MB (CK-2) 0.90 Troponin I < 0.012 < 0.012 Impressions: Abdomen Ultrasound 08/27/20 09:52 IMPRESSION: Common bile duct dilated. There is prominence of the intrahepatic ducts. These findings may be secondary to the prior cholecystectomy. Correlate clinically for biliary obstruction. Abdomen/Pelvis CT 08/27/20 09:53 IMPRESSION: 1. No pulmonary embolism. No acute pulmonary disease. 2. No acute abnormality in the abdomen or pelvis to explain the patient's symptoms. Chest/Abdomen CTA 08/27/20 09:53 IMPRESSION: 1. No pulmonary embolism. No acute pulmonary disease. 2. No acute abnormality in the abdomen or pelvis to explain the patient's symptoms. Assessment and Plan - Diagnosis (1) Hepatitis Is this a current diagnosis for this admission?: Yes (2) Abdominal pain Qualifiers: Abdominal location: right upper quadrant Qualified Code(s): R10.11 - Right upper quadrant pain Is this a current diagnosis for this admission?: Yes (3) Coronary artery disease Qualifiers: Coronary Disease-Associated Artery/Lesion type: [place] artery [place] vs. transplanted heart: [place] heart Associated angina: without angina Qualified Code(s): I25.10 - Atherosclerotic heart disease of [place] coronary artery without angina pectoris Is this a current diagnosis for this admission?: Yes (4) COPD (chronic obstructive pulmonary disease) Qualifiers: COPD type: unspecified COPD Qualified Code(s): J44.9 - Chronic obstructive pulmonary disease, unspecified Is this a current diagnosis for this admission?: Yes (5) Hypertension Qualifiers: Hypertension type: essential hypertension Qualified Code(s): I10 - Essential (primary) hypertension Is this a current diagnosis for this admission?: Yes (6) Gastroesophageal reflux disease Qualifiers: Esophagitis presence: esophagitis presence not specified Qualified Code(s): K21.9 - Gastro-esophageal reflux disease without esophagitis Is this a current diagnosis for this admission?: Yes (7) Incontinence of urine Qualifiers: Urinary Incontinence type: unspecified incontinence Qualified Code(s): R32 - Unspecified urinary incontinence Is this a current diagnosis for this admission?: Yes (8) Anemia Qualifiers: Anemia type: unspecified type Qualified Code(s): D64.9 - Anemia, unspecified Is this a current diagnosis for this admission?: Yes - Plan Summary Summary: Pleasant 80-year-old female with a history of irritable bowel and GI problems presents with abdominal pain. Her pain is epigastric and right upper quadrant. She does have a history of coronary disease but ruled out several days ago and has negative troponins at this time. She does however have elevated AST, ALT and alkaline phosphatase. Total bilirubin is normal. She has had her gallbladder out years ago. The patient's intrahepatic ducts are prominent and the emergency department physician spoke to Dr. Kim who will be performing an ERCP tonight. The patient is n.p.o. She will be admitted to telemetry in light of her history of cardiac disease. We will continue her cardiac regimen inc luding beta-blockers and statins. Surprisingly she is not on aspirin daily. Pain medication will be available. Await results of ERCP. We will repeat laboratory studies tomorrow. Hepatitis with abdominal pain With dilated ducts there is likely a narrowing or obstruction. She will undergo ERCP later tonight. She is currently n.p.o. We will repeat laboratory studies in the morning. Coronary artery disease History of cardiac catheterization and several stents. Continue statin therapy and beta-enrike therapy. We will reviewed the use of aspirin with the patient tomorrow. Chronic obstructive pulmonary disease We will continue the patient's Brio Ellipta and have nebulizer treatments available if needed Hypertension Continue current medication regimen. Hydralazine will be available if needed for markedly elevated blood pressure. Gastroesophageal reflux disease The patient reports a history of narrowing of her esophagus and discomfort that would appear to be related to reflux. She will be on Protonix at this time. Will monitor symptoms. Urinary incontinence Longstanding history of incontinence. She may benefit from a pure wick. We will try to avoid Pedro catheter. Anemia The patient reports a history of myelodysplasia. We will continue her folic acid and monitor her CBC. - Time Time Spent with patient: 35 or more minutes Medications reviewed and adjusted accordingly: Yes Anticipated Discharge Disposition: Home, Self Care Anticipated Discharge Timeframe: Dependent on results of ERCP - Inpatient Certification Based on my medical assessment, after consideration of the patient's comorbidities, presenting symptoms, or acuity I expect that the services needed warrant INPATIENT care.: Yes I certify that my determination is in accordance with my understanding of Medicare's requirements for reasonable and necessary INPATIENT services [42 CFR 412.3e].: Yes Medical Necessity: Failure to Improve With Outpatient Therapy, Need Close Monitoring Due to Risk of Patient Decompensation, Need For IV Fluids, Need For Continuous Telemetry Monitoring, Need for Nebulizer Therapy and Monitoring of Response, Need for Pain Control, Other - Need for ERCP Post Hospital Care: D/C or Transfer Summary
[2020-08-27] MEDS ORDERED: ONDANSETRON HCL INJ/PF 4 MG/2 ML SDV ONE (18:04)
[2020-08-27] MEDS ORDERED: FENTANYL CITRATE INJ/PF 100 MCG/2 ML AMPUL ONE (18:04)
[2020-08-27] MEDS ORDERED: MIDAZOLAM 2 MG/2 ML INJ ONE (18:04)
[2020-08-27] MEDS ORDERED: PROPOFOL INJ 200 MG/20 ML VIAL IV ONE (18:04)
[2020-08-27] MEDS ORDERED: FENTANYL CITRATE INJ/PF 100 MCG/2 ML AMPUL IV PRN ×3 (19:11)
[2020-08-27] MEDS: ENOXAPARIN SODIUM INJ 40 MG/0.4 ML DISP.SYRIN SUBCUT SCH (19:30)
[2020-08-27] MEDS: INSULIN REG, HUMAN 100 UNIT/ML 3 ML VIAL (PYX) SUBCUT SCH (19:30)
--- NOTE | 2020-08-27 19:32 | PDOC CONSULTATION ---
Consultation Consult Date: 08/27/20 Provider Consulted: ARISTEO LOPEZ History of Present Illness Admission Date/PCP: 08/27/20 16:03 CLOVIS KAPLAN MD History of Present Illness: ELSY SIDHU is a 80 year old femalePatient who was admitted through the emergency room with possible choledocholithiasis. She initially presented to the emergency room 2 days ago complaining of lower retrosternal and epigastric pain. Evaluation showed a hemoglobin of 10 normal LFTs except for AST of 53. She went home the same day but came back again last night with worsening epigastric pain. This time all her transaminases were elevated at 485 and 246 with alkaline phosphatase of 139. Her lipase was normal. Ultrasound showed a dilated common bile duct of 9 mm with prominent intrahepatic ducts. She had a cholecystectomy in the . A CT of the abdomen showed prominence of the intrahepatic and extrahepatic duct. She has no previous history of liver disease Past Medical History Cardiac Medical History: Reports: Coronary Artery Disease, Hypertension Denies: Myocardial Infarction Pulmonary Medical History: Reports: Chronic Obstructive Pulmonary Disease (COPD) Neurological Medical History: Denies: Ischemic CVA, Seizures Endocrine Medical History: Reports: Hypothyroidism Denies: Diabetes Mellitus Type 2 Renal/ Medical History: Denies: Chronic Kidney Disease, Nephrolithiasis Malignancy Medical History: Reports: Other - Myelodysplastic syndrome GI Medical History: Reports: Gastroesophageal Reflux Disease Musculoskeltal Medical History: Reports: Arthritis Psychiatric Medical History: Reports: General Anxiety Disorder Denies: Depression Hematology: Reports: Anemia Past Surgical History Past Surgical History: Reports: Cardiac Catheterization, Cholecystectomy, Coronary Stent - x3, Orthopedic Surgery - L knee, bilateral wrists, Pacemaker, Tonsillectomy Social History Lives with: Spouse/Significant other Smoking Status: Former Smoker Electronic Cigarette use?: No Frequency of Alcohol Use: None Hx Recreational Drug Use: No Drugs: None Hx Prescription Drug Abuse: No - Advance Directive Resuscitation Status: Full Code Family History Family History: CAD Parental Family History Reviewed: No Children Family History Reviewed: NA Sibling(s) Family History Reviewed.: NA Medication/Allergy Home Medications: Albuterol Sulfate [Albuterol Sulfate Hfa] 2 puff IH Q6HP PRN 08/27/20 Atorvastatin Calcium [Lipitor 20 mg Tablet] 20 mg PO QHS 08/27/20 Clonazepam [Klonopin] 0.5 mg PO BID 08/27/20 Fluticasone/Vilanterol [Breo 200-25 Mcg Ellipta 14 Dose/Dpi] 1 inh IH DAILY 08/27/20 Folic Acid [Folvite 1 mg Tablet] 1 mg PO DAILY 08/27/20 Levothyroxine Sodium [Synthroid 0.075 mg Tablet] 0.075 mg PO Q6AM 08/27/20 Melatonin [Melatonin 3 mg Tablet] 3 mg PO QHS 08/27/20 Metoprolol Succinate [Toprol Xl 25 mg Tab.sr] 12.5 mg PO QHS 08/27/20 Nitroglycerin [Nitrostat 0.4 mg (1/150 Gr) Tabs 25/Bottle] 1 tab SL Q5MP PRN Trazodone HCl [Desyrel 50 mg Tablet] 25 mg PO QHS MDD 50 mg 08/27/20 Allergies/Adverse Reactions: amoxicillin Allergy (Verified 08/27/20 03:06) clindamycin Allergy (Verified 08/27/20 03:06) doxycycline Allergy (Verified 08/27/20 03:06) Sulfa (Sulfonamide Antibiotics) Allergy (Verified 08/27/20 03:06) cortisone Adverse Reaction (Verified 08/27/20 03:06) latex Adverse Reaction (Verified 08/27/20 03:06) silicone Adverse Reaction (Verified 08/27/20 03:06) sitagliptin [From Januvia] Adverse Reaction (Verified 08/27/20 03:06) Review of Systems All systems: reviewed and no additional remarkable complaints except as stated Physical Exam Vital Signs: Temp Pulse Resp BP Pulse Ox 97.6 F 61 18 153/49 H 96 08/27/20 17:42 08/27/20 17:42 08/27/20 17:42 08/27/20 17:42 08/27/20 17:42 Intake & Output 08/26/20 08/27/20 08/28/20 06:59 06:59 06:59 Weight 74.1 kg 67.1 kg Exam: General: Patient is alert and looks well. HEENT: There is no pallor or jaundice. PERRLA. Oropharynx normal Respiratory: No chest deformity. No respiratory distress. Chest wall palpitation was unremarkable. Breath sounds were normal Cardiovascular: Heart sounds 1 and 2 normal with no murmurs. Abdominal: Not distended. Soft and nontender. Liver and spleen not palpable. No ascites demonstrated. Bowel sounds active. Rectal examination was deferred. Extremities: No edema Neurological: Alert and oriented x4. Grossly nonfocal. Normal speech Skin: No significant rash Psychological: Normal affect Results Laboratory Results: 08/27/20 02:12 08/27/20 02:12 08/27/20 08/27/20 08/27/20 02:12 02:12 02:12 WBC 7.9 RBC 3.83 Hgb 10.7 L Hct 31.7 L MCV 83 MCH 27.9 MCHC 33.7 RDW 14.6 H Plt Count 214 Seg Neutrophils % 79.8 H Sodium 140.6 Potassium 4.1 Chloride 104 Carbon Dioxide 27 Anion Gap 10 BUN 29 H Creatinine 0.79 Est GFR ( Amer) > 60 Glucose 131 H Calcium 10.1 Total Bilirubin 0.3 AST 485 H Alkaline Phosphatase 139 H Total Protein 6.5 Albumin 4.2 Lipase 188.2 08/27/20 08/27/20 08/27/20 02:12 02:12 05:36 Creatine Kinase 62 CK-MB (CK-2) 0.90 Troponin I < 0.012 < 0.012 Impressions: Abdomen Ultrasound 08/27/20 09:52 IMPRESSION: Common bile duct dilated. There is prominence of the intrahepatic ducts. These findings may be secondary to the prior cholecystectomy. Correlate clinically for biliary obstruction. Abdomen/Pelvis CT 08/27/20 09:53 IMPRESSION: 1. No pulmonary embolism. No acute pulmonary disease. 2. No acute abnormality in the abdomen or pelvis to explain the patient's symptoms. Chest/Abdomen CTA 08/27/20 09:53 IMPRESSION: 1. No pulmonary embolism. No acute pulmonary disease. 2. No acute abnormality in the abdomen or pelvis to explain the patient's symptoms. Assessment & Plan - Diagnosis (1) Epigastric pain Is this a current diagnosis for this admission?: Yes Plan: Her recurrent epigastric pain associated with elevated LFTs and dilated biliary tree is consistent with choledocholithiasis. The need for an ERCP including the risks and benefits was explained to the patient and her daughter and she is in agreement. (2) Common bile duct dilation Is this a current diagnosis for this admission?: Yes (3) Abnormal liver function tests Is this a current diagnosis for this admission?: Yes (4) Choledocholithiasis Is this a current diagnosis for this admission?: Yes
--- NOTE | 2020-08-27 19:34 | Operative Report ---
Operative Report DATE OF SURGERY: 08/27/20 Operative Report: Pre-op diagnosis: Abdominal pain, abnormal LFTs and dilated biliary tree Post-op diagnosis: Common bile duct sludge Surgery: ERCP with sphincterotomy, balloon sludge extraction and epinephrine injection Medications: As per anesthesia Tissue removed: None Procedure: After informed consent obtained from patient, patient was placed under general anesthesia. The ERCP endoscope was then inserted into the esophagus blindly and advanced into the stomach. The duodenum was entered and the ampulla was identified. Using the triple-lumen sphincterotomy catheter the common bile duct was freely cannulated. A cholangiogram was obtained . A good sized sphincterotomy was then performed using the endocut mode. The catheter was removed over the guidewire before a 9-12 mm balloon catheter was inserted. The balloon was inflated to 12 mm in the proximal common bile duct and pulled down the duct. The duct was swept two more times. A balloon occlusion cholangiogram was normal. There was some bleeding post sphincterotomy which was controlled by epinephrine injection patient tolerated procedure well. Findings Common bile duct: Small amount of sludge was extracted. Intrahepatic ducts: Normal Pancreatic duct: Not cannulated Plan: Follow LFTs OPERATION: .
[2020-08-27] MEDS: RINGERS SOLUTION,LACTATED 1,000 ML IV PRN (20:46)
[2020-08-27] MEDS: FLUTICASONE/VILANTEROL 200-25 MCG/DOSE IH SCH (20:48)
[2020-08-27] MEDS: METOPROLOL SUCCINATE 25 MG TAB.SR.24H PO SCH (21:32)
[2020-08-27] MEDS: ATORVASTATIN CALCIUM 20 MG TABLET PO SCH (21:34)
[2020-08-27] MEDS: TRAZODONE HCL 50 MG TABLET PO SCH (21:34)
[2020-08-27] MEDS: MELATONIN 3 MG TABLET PO SCH (21:35)
[2020-08-27] MEDS: MORPHINE SULFATE 10 MG/ML INJ IV PRN (23:29)
[2020-08-28] MEDS: MORPHINE SULFATE 10 MG/ML INJ IV PRN ×2 (04:02→18:54)
[2020-08-28] MEDS ORDERED: LEVOTHYROXINE SODIUM 0.075 MG TABLET ONE (06:01)
[2020-08-28] MEDS: LEVOTHYROXINE SODIUM 0.075 MG TABLET PO SCH (06:06)
[2020-08-28] MEDS: INSULIN REG, HUMAN 100 UNIT/ML 3 ML VIAL (PYX) SUBCUT SCH ×4 (06:08→18:09)
[2020-08-28 06:52] LABS: ABSOLUTE MONOCYTES (AUTO) 0.3 10^3/uL (0.1-1.4); ABSOLUTE NEUT (AUTO) 2.8 10^3/uL (1.7-8.2); BASOPHILS % (AUTO) 0.6 % (0-2); HEMATOCRIT 27.8 % (36.0-47.0); HEMOGLOBIN 9.2 g/dL (12.0-15.5); LYMPHOCYTES % (AUTO) 24.2 % (13-45); MEAN CORPUSCULAR HEMOGLOBIN 27.4 pg (27.0-33.4); MEAN CORPUSCULAR VOLUME 83 fl (80-97); MONOCYTES % (AUTO) 6.3 % (3-13); PLATELET COUNT 158 10^3/uL (150-450); RED BLOOD COUNT 3.35 10^6/uL (3.72-5.28); RED CELL DISTRIBUTION WIDTH 14.5 % (11.5-14.0); SEGMENTED NEUTROPHILS % (AUTO) 67.9 % (42-78); TOTAL CELLS COUNTED % (AUTO) 100 %; WHITE BLOOD COUNT 4.1 10^3/uL (4.0-10.5)
[2020-08-28 07:13] LABS: ALBUMIN 3.4 g/dL (3.5-5.0); ALKALINE PHOSPHATASE 162 U/L (38-126); ANION GAP 7 (5-19); BILIRUBIN,DIRECT 0.2 mg/dL (0.0-0.4); BILIRUBIN,TOTAL 0.9 mg/dL (0.2-1.3); BLOOD UREA NITROGEN 17 mg/dL (7-20); CALCIUM 9.2 mg/dL (8.4-10.2); CARBON DIOXIDE 26 mmol/L (22-30); CHLORIDE 103 mmol/L (98-107); GLUCOSE 102 mg/dL (75-110); TOTAL PROTEIN 5.3 g/dL (6.3-8.2)
[2020-08-28 07:21] LABS: ASPARTATE AMINO TRANSFERASE 913 U/L (14-36)
--- NOTE | 2020-08-28 08:16 | RADIOLOGY REPORT (SQ) ---
EXAM DESCRIPTION: ENDO CATH/BILIARY DUCT; NO CHG FLUORO IMAGES COMPLETED DATE/TIME: 08/27/2020 7:38 pm; 08/27/2020 7:37 pm REASON FOR STUDY: ERCP COMPARISON: None. FLUOROSCOPY TIME: 1.4 minutes Spot images saved to PACS. TECHNIQUE: Intra-operative images acquired during surgical procedure to evaluate progress. NUMBER OF IMAGES: 3 LIMITATIONS: None. FINDINGS: Fluoroscopy was provided for intraoperative procedure. Please refer to the operative repo rt further discussion. IMPRESSION: IMAGE(S) OBTAINED DURING PROCEDURE. COMMENT: Quality ID [id number]: Final reports for procedures using fluoroscopy that document radiation exp osure indices, or exposure time and number of fluorographic images (if radiation exposure indices are not available) Please consult full operative report of the attending physician for description of the procedure. TECHNICAL DOCUMENTATION: JOB ID: [id number] 2010 [employer]- All Rights Reserved Reading location - IP/workstation name: [email or web address]
--- NOTE | 2020-08-28 08:16 | RADIOLOGY REPORT (SQ) ---
EXAM DESCRIPTION: ENDO CATH/BILIARY DUCT; NO CHG FLUORO IMAGES COMPLETED DATE/TIME: 08/27/2020 7:38 pm; 08/27/2020 7:37 pm REASON FOR STUDY: ERCP COMPARISON: None. FLUOROSCOPY TIME: 1.4 minutes Spot images saved to PACS. TECHNIQUE: Intra-operative images acquired during surgical procedure to evaluate progress. NUMBER OF IMAGES: 3 LIMITATIONS: None. FINDINGS: Fluoroscopy was provided for intraoperative procedure. Please refer to the operative repo rt further discussion. IMPRESSION: IMAGE(S) OBTAINED DURING PROCEDURE. COMMENT: Quality ID [id number]: Final reports for procedures using fluoroscopy that document radiation exp osure indices, or exposure time and number of fluorographic images (if radiation exposure indices are not available) Please consult full operative report of the attending physician for description of the procedure. TECHNICAL DOCUMENTATION: JOB ID: [id number] 2010 [employer]- All Rights Reserved Reading location - IP/workstation name: [email or web address]
[2020-08-28] MEDS: RINGERS SOLUTION,LACTATED 1,000 ML IV PRN (09:21)
[2020-08-28] MEDS: PANTOPRAZOLE SODIUM 40 MG VIAL IV SCH (09:22)
[2020-08-28] MEDS: ENOXAPARIN SODIUM INJ 40 MG/0.4 ML DISP.SYRIN SUBCUT SCH (09:22)
--- NOTE | 2020-08-28 15:47 | PDOC PROGRESS REPORT ---
Subjective Date:: 08/28/20 Subjective:: The substernal/epigastric pain is resolved. She now has some discomfort in the right upper quadrant but it is modest. This is likely from the procedure. She has been tolerating clear liquids without difficulty. Reason For Visit: ABDOMINAL PAIN,ELEVATED TRANSAMINASES,DILATED Physical Exam Vital Signs: Temp Pulse Resp BP Pulse Ox 98.1 F 60 14 125/43 L 99 08/28/20 11:19 08/28/20 11:19 08/28/20 11:19 08/28/20 11:19 08/28/20 11:19 Intake & Output 08/27/20 08/28/20 08/29/20 06:59 06:59 06:59 Intake Total 1620 200 Balance 1620 200 Weight 74.1 kg 67.1 kg General appearance: PRESENT: no acute distress, cooperative, well-developed, well-nourished Head exam: PRESENT: atraumatic, normocephalic Eye exam: PRESENT: conjunctiva pink. ABSENT: scleral icterus Ear exam: PRESENT: normal external ear exam. ABSENT: bleeding, drainage Mouth exam: PRESENT: moist, tongue midline Respiratory exam: PRESENT: clear to auscultation graciela, symmetrical, unlabored. ABSENT: prolonged expiratory phas, rales, rhonchi, tachypnea, wheezes Cardiovascular exam: PRESENT: RRR, +S1, +S2, systolic murmur - Faint. ABSENT: bradycardia, diastolic murmur, irregular rhythm, tachycardia GI/Abdominal exam: PRESENT: normal bowel sounds, soft, tenderness - Minimal tenderness right upper quadrant. ABSENT: distended, guarding Rectal exam: PRESENT: deferred Gentrourinary exam: ABSENT: indwelling catheter Extremities exam: ABSENT: pedal edema Musculoskeletal exam: PRESENT: ambulatory, normal inspection. ABSENT: deformity, dislocation Neurological exam: PRESENT: alert, awake, oriented to person, oriented to place, oriented to time, oriented to situation, CN II-XII grossly intact. ABSENT: altered Psychiatric exam: PRESENT: appropriate affect. ABSENT: agitated, anxious Focused psych exam: ABSENT: delusional, paranoid, restlessness Skin exam: PRESENT: dry, normal color, warm. ABSENT: rash Results Laboratory Results: 08/28/20 06:16 08/28/20 06:16 08/28/20 08/28/20 08/28/20 06:16 06:16 06:16 WBC 4.1 RBC 3.35 L Hgb 9.2 L Hct 27.8 L MCV 83 MCH 27.4 MCHC 33.0 RDW 14.5 H Plt Count 158 Seg Neutrophils % 67.9 Sodium 136.4 L Potassium 4.0 Chloride 103 Carbon Dioxide 26 Anion Gap 7 BUN 17 Creatinine 0.68 Est GFR ( Amer) > 60 Glucose 102 Calcium 9.2 Magnesium 1.9 Total Bilirubin 0.9 AST 913 H Alkaline Phosphatase 162 H Total Protein 5.3 L Albumin 3.4 L TSH 2.63 08/27/20 08/27/20 08/27/20 02:12 02:12 05:36 Creatine Kinase 62 CK-MB (CK-2) 0.90 Troponin I < 0.012 < 0.012 Impressions: Catheter Placement 08/27/20 00:00 IMPRESSION: IMAGE(S) OBTAINED DURING PROCEDURE. Fluoroscopy 08/27/20 00:00 IMPRESSION: IMAGE(S) OBTAINED DURING PROCEDURE. Abdomen Ultrasound 08/27/20 09:52 IMPRESSION: Common bile duct dilated. There is prominence of the intrahepatic ducts. These findings may be secondary to the prior cholecystectomy. Correlate clinically for biliary obstruction. Abdomen/Pelvis CT 08/27/20 09:53 IMPRESSION: 1. No pulmonary embolism. No acute pulmonary disease. 2. No acute abnormality in the abdomen or pelvis to explain the patient's symptoms. Chest/Abdomen CTA 08/27/20 09:53 IMPRESSION: 1. No pulmonary embolism. No acute pulmonary disease. 2. No acute abnormality in the abdomen or pelvis to explain the patient's symptoms. Assessment and Plan - Diagnosis (1) Hepatitis Is this a current diagnosis for this admission?: Yes (2) Abdominal pain Qualifiers: Abdominal location: right upper quadrant Qualified Code(s): R10.11 - Right upper quadrant pain Is this a current diagnosis for this admission?: Yes (3) Coronary artery disease Qualifiers: Coronary Disease-Associated Artery/Lesion type: [place] artery [place] vs. transplanted heart: [place] heart Associated angina: without angina Qualified Code(s): I25.10 - Atherosclerotic heart disease of [place] coronary artery without angina pectoris Is this a current diagnosis for this admission?: Yes (4) COPD (chronic obstructive pulmonary disease) Qualifiers: COPD type: unspecified COPD Qualified Code(s): J44.9 - Chronic obstructive pulmonary disease, unspecified Is this a current diagnosis for this admission?: Yes (5) Hypertension Qualifiers: Hypertension type: essential hypertension Qualified Code(s): I10 - Essential (primary) hypertension Is this a current diagnosis for this admission?: Yes (6) Gastroesophageal reflux disease Qualifiers: Esophagitis presence: esophagitis presence not specified Qualified Code(s): K21.9 - Gastro-esophageal reflux disease without esophagitis Is this a current diagnosis for this admission?: Yes (7) Incontinence of urine Qualifiers: Urinary Incontinence type: unspecified incontinence Qualified Code(s): R32 - Unspecified urinary incontinence Is this a current diagnosis for this admission?: Yes (8) Anemia Qualifiers: Anemia type: unspecified type Qualified Code(s): D64.9 - Anemia, unspecified Is this a current diagnosis for this admission?: Yes - Plan Summary Summary: Pleasant 80-year-old female with a history of irritable bowel and GI problems presents with abdominal pain. Her pain is epigastric and right upper quadrant. She does have a history of coronary disease but ruled out several days ago and has negative troponins at this time. She does however have elevated AST, ALT and alkaline phosphatase. Total bilirubin is normal. She has had her gallbladder out years ago. The patient's intrahepatic ducts are prominent and the emergency department physician spoke to Dr. Kim who will be performing an ERCP tonight. The patient is n.p.o. She will be admitted to telemetry in light of her history of cardiac disease. We will continue her cardiac regimen including beta-blockers and statins. Surprisingly she is not on aspirin daily. Pain medication will be available. Await results of ERCP. We will repeat laboratory studies tomorrow. Hepatitis with abdominal pain With dilated ducts there is likely a narrowing or obstruction. She will undergo ERCP later tonight. She is currently n.p.o. We will repeat laboratory studies in the morning. Coronary artery disease History of cardiac catheterization and several stents. Continue statin therapy and beta-enrike therapy. We will reviewed the use of aspirin with the patient tomorrow. Chronic obstructive pulmonary disease We will continue the patient's Brio Ellipta and have nebulizer treatments available if needed Hypertension Continue current medication regimen. Hydralazine will be available if needed for markedly elevated blood pressure. Gastroesophageal reflux disease The patient reports a history of narrowing of her esophagus and discomfort that would appear to be related to reflux. She will be on Protonix at this time. Will monitor symptoms. Urinary incontinence Longstanding history of incontinence. She may benefit from a pure wick. We will try to avoid Pedro catheter. Anemia The patient reports a history of myelodysplasia. We will continue her folic acid and monitor her CBC. 08/28/2020 The patient underwent ERCP last evening. Sludge was removed from the common bile duct and a sphincterotomy was performed. Due to the manipulation her transaminases went up. AST equals 913, ALT equals 950 and alkaline phosphatase equals 162. The should trend down tomorrow with the obstruction relieved. I explained to the patient that the right upper quadrant discomfort was most lik melissa postprocedural and that should improve as well. I am going to advance her diet to full liquids. If she does well I anticipate discharge tomorrow if there are no complications. We will also decrease her IV fluids now that she is on an oral diet. The patient has had increased urine production. Now that she is on a clear liquid diet I will discontinue the IV fluids. We will continue to monitor intake and output. COPD-continue Brio Ellipta Coronary artery disease stable. Continue current regimen Blood pressure well controlled. Continue current regimen - Time Time Spent with patient: 15-24 minutes Medications reviewed and adjusted accordingly: Yes Anticipated Discharge Disposition: Home, Self Care Anticipated Discharge Timeframe: within 24 hours
[2020-08-28] MEDS: FLUTICASONE/VILANTEROL 200-25 MCG/DOSE IH SCH (18:02)
[2020-08-28] MEDS: TRAZODONE HCL 50 MG TABLET PO SCH (21:59)
[2020-08-28] MEDS: ATORVASTATIN CALCIUM 20 MG TABLET PO SCH (22:00)
[2020-08-28] MEDS: METOPROLOL SUCCINATE 25 MG TAB.SR.24H PO SCH (22:00)
[2020-08-28] MEDS: MELATONIN 3 MG TABLET PO SCH (22:00)
[2020-08-28] MEDS: CLONAZEPAM 1 MG TABLET PO SCH (23:20)
[2020-08-29] MEDS: INSULIN REG, HUMAN 100 UNIT/ML 3 ML VIAL (PYX) SUBCUT SCH ×2 (00:32→06:28)
[2020-08-29] MEDS: LEVOTHYROXINE SODIUM 0.075 MG TABLET PO SCH (05:31)
[2020-08-29] MEDS: CLONAZEPAM 1 MG TABLET PO SCH (05:31)
[2020-08-29 06:47] LABS: ABSOLUTE EOSINOPHILS # (AUTO) 0.1 10^3/uL (0.0-0.6); ABSOLUTE LYMPHOCYTES (AUTO) 1.3 10^3/uL (0.5-4.7); ABSOLUTE MONOCYTES (AUTO) 0.4 10^3/uL (0.1-1.4); ABSOLUTE NEUT (AUTO) 3.7 10^3/uL (1.7-8.2); BASOPHILS % (AUTO) 0.5 % (0-2); EOSINOPHILS % (AUTO) 1.2 % (0-6); HEMATOCRIT 32.1 % (36.0-47.0); HEMOGLOBIN 10.6 g/dL (12.0-15.5); LYMPHOCYTES % (AUTO) 23.9 % (13-45); MEAN CORPUSCULAR HEMOGLOBIN 27.6 pg (27.0-33.4); MEAN CORPUSCULAR HGB CONC 33.2 g/dL (32.0-36.0); MEAN CORPUSCULAR VOLUME 83 fl (80-97); MONOCYTES % (AUTO) 7.6 % (3-13); PLATELET COUNT 186 10^3/uL (150-450); RED BLOOD COUNT 3.86 10^6/uL (3.72-5.28); RED CELL DISTRIBUTION WIDTH 14.4 % (11.5-14.0); SEGMENTED NEUTROPHILS % (AUTO) 66.8 % (42-78); TOTAL CELLS COUNTED % (AUTO) 100 %; WHITE BLOOD COUNT 5.5 10^3/uL (4.0-10.5)
[2020-08-29 07:17] LABS: ALKALINE PHOSPHATASE 200 U/L (38-126); ANION GAP 11 (5-19); ASPARTATE AMINO TRANSFERASE 515 U/L (14-36); BILIRUBIN,DIRECT 0.1 mg/dL (0.0-0.4); BILIRUBIN,TOTAL 0.8 mg/dL (0.2-1.3); BLOOD UREA NITROGEN 13 mg/dL (7-20); CALCIUM 9.9 mg/dL (8.4-10.2); CARBON DIOXIDE 25 mmol/L (22-30); CHLORIDE 102 mmol/L (98-107); GLUCOSE 99 mg/dL (75-110); POTASSIUM 3.8 mmol/L (3.6-5.0); TOTAL PROTEIN 6.3 g/dL (6.3-8.2)
[2020-08-29] MEDS: PANTOPRAZOLE SODIUM 40 MG VIAL IV SCH (10:04)
[2020-08-29] MEDS: ENOXAPARIN SODIUM INJ 40 MG/0.4 ML DISP.SYRIN SUBCUT SCH (10:04)
--- NOTE | 2020-08-29 12:37 | PDOC DISCHARGE SUMMARY ---
Impression - Admit/DC Date/PCP Admission Date/Primary Care Provider: 08/27/20 16:03 CLOVIS KAPLAN MD Discharge Date: 08/29/20 - Discharge Diagnosis (1) Hepatitis Is this a current diagnosis for this admission?: Yes (2) Abdominal pain Is this a current diagnosis for this admission?: Yes (3) Coronary artery disease Is this a current diagnosis for this admission?: Yes (4) COPD (chronic obstructive pulmonary disease) Is this a current diagnosis for this admission?: Yes (5) Hypertension Is this a current diagnosis for this admission?: Yes (6) Gastroesophageal reflux disease Is this a current diagnosis for this admission?: Yes (7) Incontinence of urine Is this a current diagnosis for this admission?: Yes (8) Anemia Is this a current diagnosis for this admission?: Yes - Assessment Summary: Pleasant 80-year-old female with a history of irritable bowel and GI problems presents with abdominal pain. Her pain is epigastric and right upper quadrant. She does have a history of coronary disease but ruled out several days ago and has negative troponins at this time. She does however have elevated AST, ALT and alkaline phosphatase. Total bilirubin is normal. She has had her gallbladder out years ago. The patient's intrahepatic ducts are prominent and the emergency department physician spoke to Dr. Lopez who will be performing an ERCP tonight. The patient is n.p.o. She will be admitted to telemetry in light of her history of cardiac disease. We will continue her cardiac regimen including beta-blockers and statins. Surprisingly she is not on aspirin daily. Pain medication will be available. Await results of ERCP. We will repeat laboratory studies tomorrow. Hepatitis with abdominal pain With dilated ducts there is likely a narrowing or obstruction. She will undergo ERCP later tonight. She is currently n.p.o. We will repeat laboratory studies in the morning. Coronary artery disease History of cardiac catheterization and several stents. Continue statin therapy and beta-enrike therapy. We will reviewed the use of aspirin with the patient tomorrow. Chronic obstructive pulmonary disease We will continue the patient's Brio Ellipta and have nebulizer treatments a vailable if needed Hypertension Continue current medication regimen. Hydralazine will be available if needed for markedly elevated blood pressure. Gastroesophageal reflux disease The patient reports a history of narrowing of her esophagus and discomfort that would appear to be related to reflux. She will be on Protonix at this time. Will monitor symptoms. Urinary incontinence Longstanding history of incontinence. She may benefit from a pure wick. We will try to avoid Pedro catheter. Anemia The patient reports a history of myelodysplasia. We will continue her folic acid and monitor her CBC. 08/28/2020 The patient underwent ERCP last evening. Sludge was removed from the common bile duct and a sphincterotomy was performed. Due to the manipulation her transaminases went up. AST equals 913, ALT equals 950 and alkaline phosphatase equals 162. The should trend down tomorrow with the obstruction relieved. I explained to the patient that the right upper quadrant discomfort was most likely postprocedural and that should improve as well. I am going to advance her diet to full liquids. If she does well I anticipate discharge tomorrow if there are no complications. We will also decrease her IV fluids now that she is on an oral diet. The patient has had increased urine production. Now that she is on a clear liquid diet I will discontinue the IV fluids. We will continue to monitor intake and output. COPD-continue Brio Ellipta Coronary artery disease stable. Continue current regimen Blood pressure well controlled. Continue current regimen 08/29/2020 Still with discomfort. This is most likely due to irritation from the ERCP. The patient did experience a sharp elevation in transaminases. They are improved today. She tolerated the full liquid diet. Stable for discharge to home. Abdominal discomfort should resolve slowly over the next several days. - Additional Information Resuscitation Status: Full Code Discharge Diet: Other (Comments) - Soft bland diet advance slowly as above Discharge Activity: Activity As Tolerated Referrals: ARISTEO LOPEZ MD [ACTIVE STAFF] - (08/29/20 7002 PROVIDER WILL CONTACT PATIENT WITH FOLLOW UP INFORMATION ) CLOVIS KAPLAN MD [Primary Care Provider] - Follow up as needed (08/29/20 0902 CALLED AND LEFT A MESSAGE FOR THE PROVIDER. THEY WILL CONTACT PT WITH FOLLOW UP APT.) Home Medications: Albuterol Sulfate [Albuterol Sulfate Hfa] 2 puff IH Q6HP PRN 08/27/20 Atorvastatin Calcium [Lipitor 20 mg Tablet] 20 mg PO QHS 08/27/20 Clonazepam [Klonopin] 0.5 mg PO BID 08/27/20 Fluticasone/Vilanterol [Breo 200-25 Mcg Ellipta 14 Dose/Dpi] 1 inh IH DAILY 08/27/20 Folic Acid [Folvite 1 mg Tablet] 1 mg PO DAILY 08/27/20 Levothyroxine Sodium [Synthroid 0.075 mg Tablet] 0.075 mg PO Q6AM 08/27/20 Melatonin [Melatonin 3 mg Tablet] 3 mg PO QHS 08/27/20 Metoprolol Succinate [Toprol Xl 25 mg Tab.sr] 12.5 mg PO QHS 08/27/20 Nitroglycerin [Nitrostat 0.4 mg (1/150 Gr) Tabs 25/Bottle] 1 tab SL Q5MP PRN 08/27/20 Trazodone HCl [Desyrel 50 mg Tablet] 25 mg PO QHS MDD 50 mg 08/27/20 Clonazepam [Klonopin 1 mg Tablet] 0.5 mg PO BID@0000,2000 tablet 08/29/20 Fluticasone/Vilanterol [Breo 200-25 Mcg Ellipta 14 Dose/Dpi] 1 inh IH QPM inhaler 08/29/20 History of Present Illiness History of Present Illness: ELSY SIDHU is a 80 year old female who has been in the emergency department several times over the last 2 weeks. She states that she has had GI problems over the years. She reports history of irritable bowel. She had a colonoscopy and gastroscopy approximately 2 years ago. She states that after the endoscopies her stomach felt worse. She states that she has had increasing pain since Wednesday. She denies nausea and vomiting. She states she has not had much to eat. She had no relief from the pain and presented to the emergency department. Her transaminases were found to be elevated and her intrahepatic ducts were prominent. The emergency department contacted Dr. Lopez who will be performing an ERCP today. She will be admitted to the hospital service. We will provide IV fluids as she is quite dry and she is n.p.o. She can have medications with sips of water until after the procedure. We will resume her previous medications. Hospital Course Hospital Course: As above Physical Exam Vital Signs: Temp Pulse Resp BP Pulse Ox 98.0 F 61 18 134/43 H 97 08/29/20 07:37 08/29/20 07:37 08/29/20 07:37 08/29/20 07:37 08/29/20 07:37 Intake & Output 08/28/20 08/29/20 08/30/20 06:59 06:59 06:59 Intake Total 1620 1392 Balance 1620 1392 Weight 67.1 kg 67.1 kg General appearance: PRESENT: mild distress Respiratory exam: PRESENT: clear to auscultation graciela, symmetrical, unlabored. ABSENT: rales, rhonchi, tachypnea, wheezes Cardiovascular exam: PRESENT: RRR, +S1, +S2. ABSENT: bradycardia, diastolic murmur, irregular rhythm, systolic murmur, tachycardia GI/Abdominal exam: PRESENT: normal bowel sounds, soft, tenderness. ABSENT: distended, guarding Neurological exam: PRESENT: alert, awake, oriented to person, oriented to place, oriented to time, oriented to situation, CN II-XII grossly intact. ABSENT: altered Psychiatric exam: PRESENT: appropriate affect. ABSENT: agitated, anxious Focused psych exam: ABSENT: delusional, paranoid, restlessness Skin exam: PRESENT: dry, normal color, warm. ABSENT: rash Results Laboratory Results: WBC 5.5 10^3/uL (4.0-10.5) 08/29/20 06:08 RBC 3.86 10^6/uL (3.72-5.28) 08/29/20 06:08 Hgb 10.6 g/dL (12.0-15.5) L 08/29/20 06:08 Hct 32.1 % (36.0-47.0) L 08/29/20 06:08 MCV 83 fl (80-97) 08/29/20 06:08 MCH 27.6 pg (27.0-33.4) 08/29/20 06:08 MCHC 33.2 g/dL (32.0-36.0) 08/29/20 06:08 RDW 14.4 % (11.5-14.0) H 08/29/20 06:08 Plt Count 186 10^3/uL (150-450) 08/29/20 06:08 Lymph % (Auto) 23.9 % (13-45) 08/29/20 06:08 [place] % (Auto) 7.6 % (3-13) 08/29/20 06:08 Eos % (Auto) 1.2 % (0-6) 08/29/20 06:08 Baso % (Auto) 0.5 % (0-2) 08/29/20 06:08 Absolute Neuts (auto) 3.7 10^3/uL (1.7-8.2) 08/29/20 06:08 Absolute Lymphs (auto) 1.3 10^3/uL (0.5-4.7) 08/29/20 06:08 Absolute Monos (auto) 0.4 10^3/uL (0.1-1.4) 08/29/20 06:08 Absolute Eos (auto) 0.1 10^3/uL (0.0-0.6) 08/29/20 06:08 Absolute Basos (auto) 0.0 10^3/uL (0.0-0.2) 08/29/20 06:08 Seg Neutrophils % 66.8 % (42-78) 08/29/20 06:08 Sodium 138.2 mmol/L (137-145) 08/29/20 06:08 Potassium 3.8 mmol/L (3.6-5.0) 08/29/20 06:08 Chloride 102 mmol/L (98-107) 08/29/20 06:08 Carbon Dioxide 25 mmol/L (22-30) 08/29/20 06:08 Anion Gap 11 (5-19) 08/29/20 06:08 BUN 13 mg/dL (7-20) 08/29/20 06:08 Creatinine 0.72 mg/dL (0.52-1.25) 08/29/20 06:08 Est GFR ( Amer) > 60 (>60) 08/29/20 06:08 Est GFR (MDRD) Non-Af > 60 (>60) 08/29/20 06:08 Glucose 99 mg/dL (75-110) 08/29/20 06:08 POC Glucose 153 mg/dL (70-110) H 08/29/20 12:26 Calcium 9.9 mg/dL (8.4-10.2) 08/29/20 06:08 Magnesium 2.0 mg/dL (1.6-2.3) 08/29/20 06:08 Total Bilirubin 0.8 mg/dL (0.2-1.3) 08/29/20 06:08 Direct Bilirubin 0.1 mg/dL (0.0-0.4) 08/29/20 06:08 Neonat Total Bilirubin Not Reportable 08/29/20 06:08 Neonat Direct Bilirubin Not Reportable 08/29/20 06:08 Neonat Indirect Bili Not Reportable 08/29/20 06:08 AST 515 U/L (14-36) H 08/29/20 06:08 ALT 752 U/L (<35) H 08/29/20 06:08 Alkaline Phosphatase 200 U/L (38-126) H 08/29/20 06:08 Creatine Kinase 62 U/L (30-135) 08/27/20 02:12 CK-MB (CK-2) 0.90 ng/mL (<4.55) 08/27/20 02:12 Troponin I < 0.012 ng/mL 08/27/20 05:36 Total Protein 6.3 g/dL (6.3-8.2) 08/29/20 06:08 Albumin 4.0 g/dL (3.5-5.0) 08/29/20 06:08 Lipase 188.2 U/L (23-300) 08/27/20 02:12 TSH 2.63 uIU/mL (0.47-4.68) 08/28/20 06:16 SARS-CoV-2 (PCR) NEGATIVE (NEGATIVE) 08/27/20 16:14 08/27/20 08/27/20 02:12 05:36 CK-MB (CK-2) 0.90 Troponin I < 0.012 < 0.012 Impressions: Catheter Placement 08/27/20 00:00 IMPRESSION: IMAGE(S) OBTAINED DURING PROCEDURE. Fluoroscopy 08/27/20 00:00 IMPRESSION: IMAGE(S) OBTAINED DURING PROCEDURE. Abdomen Ultrasound 08/27/20 09:52 IMPRESSION: Common bile duct dilated. There is prominence of the intrahepatic ducts. These findings may be secondary to the prior cholecystectomy. Correlate clinically for biliary obstruction. Abdomen/Pelvis CT 08/27/20 09:53 IMPRESSION: 1. No pulmonary embolism. No acute pulmonary disease. 2. No acute abnormality in the abdomen or pelvis to explain the patient's symptoms. Chest/Abdomen CTA 08/27/20 09:53 IMPRESSION: 1. No pulmonary embolism. No acute pulmonary disease. 2. No acute abnormality in the abdomen or pelvis to explain the patient's symptoms. Plan Health Concerns: Discomfort status post ERCP with sphincterotomy Plan of Treatment: Advance diet slowly. Continue current medications. Follow-up with GI Goals: Resolution of elevated liver enzymes. Improvement in biliary obstruction. Time Spent: Greater than 30 Minutes Stroke Is this a Stroke Patient?: No Acute Heart Failure Is this a Heart Failure Patient?: No
[2020-08-29 13:10] VITALS: BP 123/78
== END 2020-08-29 14:11 | disposition home or self-care (01) | DRG 446 ==
LOC: ER 22:40 → EH 08-27 16:03 → 4S 08-27 17:36
PROVIDERS: ADMIT Hospitalist; ATTEND Hospitalist
PROC: 0F798ZZ Dilation of Common Bile Duct, Via Natural or Artificial Opening Endoscopic (ICD-10-PCS; principal; 2020-08-27 18:30)
PROC: 3E0J8GC Introduction of Other Therapeutic Substance into Biliary and Pancreatic Tract, Via Natural or Artificial Opening Endoscopic (ICD-10-PCS; 2020-08-27 18:30)
DX: K83.8 Other specified diseases of biliary tract (principal); K75.9 Inflammatory liver disease, unspecified; I25.10 Atherosclerotic heart disease of native coronary artery without angina pectoris; J44.9 Chronic obstructive pulmonary disease, unspecified; I10 Essential (primary) hypertension; K21.9 Gastro-esophageal reflux disease without esophagitis; D64.9 Anemia, unspecified; R32 Unspecified urinary incontinence; E03.9 Hypothyroidism, unspecified; F41.1 Generalized anxiety disorder; K58.9 Irritable bowel syndrome, unspecified; Z79.899 Other long term (current) drug therapy; Z79.890 Hormone replacement therapy; Z95.5 Presence of coronary angioplasty implant and graft; Z95.0 Presence of cardiac pacemaker; Z87.891 Personal history of nicotine dependence; Z88.0 Allergy status to penicillin; Z88.8 Allergy status to other drugs, medicaments and biological substances; Z88.3 Allergy status to other anti-infective agents; Z91.040 Latex allergy status; Z82.49 Family history of ischemic heart disease and other diseases of the circulatory system
CPT/HCPCS: 36415; 43262; 43264; 43277; 71045; 71275; 732; 74177; 74328; 76705; 80053; 82550; 82553; 82962; 83690; 83735; 84443; 84484; 85025; 85610; 85730; 87635; 93005; 93010; 96374; 96375; 96376; 99285; C9113; C9803; J0171; J0330; J1610; J1650; J2250; J2270; J2405; J2704; J3010; J3490; J7120; Q9967

== ENCOUNTER → 2020-09-05 | Outpatient (CLI) | payer MEDICARE, OTHER ==
[2020-09-05 18:36] LABS: HEMATOCRIT 31.2 % (36.0-47.0); HEMOGLOBIN 10.2 g/dL (12.0-15.5); MEAN CORPUSCULAR HEMOGLOBIN 27.1 pg (27.0-33.4); MEAN CORPUSCULAR HGB CONC 32.6 g/dL (32.0-36.0); MEAN CORPUSCULAR VOLUME 83 fl (80-97); PLATELET COUNT 224 10^3/uL (150-450); RED BLOOD COUNT 3.76 10^6/uL (3.72-5.28); RED CELL DISTRIBUTION WIDTH 14.3 % (11.5-14.0); WHITE BLOOD COUNT 4.3 10^3/uL (4.0-10.5)
[2020-09-05 18:53] LABS: ALBUMIN 4.2 g/dL (3.5-5.0); ALKALINE PHOSPHATASE 120 U/L (38-126); ASPARTATE AMINO TRANSFERASE 38 U/L (14-36); BILIRUBIN,DIRECT 0.2 mg/dL (0.0-0.4); BILIRUBIN,TOTAL 0.4 mg/dL (0.2-1.3); TOTAL PROTEIN 6.5 g/dL (6.3-8.2)
== END ==
LOC: OD 16:57
PROVIDERS: ATTEND Internal Medicine Gastroenterology
DX: R94.5 Abnormal results of liver function studies (principal)
CPT/HCPCS: 36415; 80076; 85027